=== PATIENT | female | born 1990 | race Caucasian/White ===

== ENCOUNTER → 2024-06-02 18:40 | Outpatient (CLI) | payer OTHER, SELFPAY | PROVIDERS: PCP Nurse Practitioner Family; Visit Provider Student in an Organized Health Care Education/Training Program | DX: R30.0 Dysuria (principal); N94.9 Unspecified condition associated with female genital organs and menstrual cycle | CPT/HCPCS: 87086; 87210 ==

== ENCOUNTER → 2024-06-26 13:18 | Outpatient (CLI) | payer OTHER, SELFPAY ==
[2024-06-26 13:44] LABS: Appearance Urine UA CLEAR; Bilirubin Urine UA NEGATIVE (NEGATIVE); Color Urine UA YELLOW; Glucose Urine UA NEGATIVE (Negative); Ketones Urine UA NEGATIVE (NEGATIVE); Leukocyte Esterase Urine UA NEGATIVE (NEGATIVE); Nitrite Urine UA NEGATIVE (Negative); Occult Blood Urine UA NEGATIVE (Negative); Protein Urine UA NEGATIVE (Negative); Specific Gravity Urine UA >=1.030 (1.000-1.035)
[2024-06-26 13:45] LABS: pH Urine UA 5.5 (4.5-8.0)
[2024-06-26 14:21] LABS: Add Manual Diff / Slide Review NO; Basophils Absolute Auto 0 /uL (0-100); Basophils Percent Auto 0.2 % (0-2); Eosinophils Absolute Auto 0 /uL (0-450); Eosinophils Percent Auto 0.2 % (2-4); Hematocrit 35.7 % (36-46); Hemoglobin 11.9 g/dL (12.0-16.0); Lymphocytes Absolute Auto 1400 /uL (1100-4500); Lymphocytes Percent Auto 19.5 % (25-40); Mean Corpuscular HGB Conc 33.3 % (30-36); Mean Corpuscular Hemoglobin 26.5 PG (26-34); Mean Corpuscular Volume 79.6 fL (80-100); Monocytes Absolute Auto 300 /uL (0-900); Neutrophils Absolute Auto 5600 /uL (1500-7000); Neutrophils Percent Auto 76.1 % (50-75); Platelet Count 214 X10^3/uL (150-400); Red Blood Cell Count 4.49 X10^6/uL (4.0-5.2); Red Cell Distribution Width 15.4 % (11.6-14.8); White Blood Cell Count 7.4 X10^3/uL (4.5-11.0)
[2024-06-26 14:40] LABS: HEMOLYSIS < 15 (0-50); Iron 43 ug/dL (37-170)
[2024-06-26 14:51] LABS: Percent Iron Saturation 11 % (15-50); Total Iron Binding Capacity 375 ug/dL (265-497); Transferrin 346 mg/dL (206-381)
[2024-06-26 15:16] LABS: Ferritin 6 ng/mL (6-137)
[2024-06-28 10:11] LABS: RPR Screen Non Reactive (Non Reactive)
[2024-06-28 12:37] LABS: Varicella IgG Antibody Reactive (Non Reactive)
[2024-06-29 07:22] LABS: Miscellaneous to LabCorp NATERA KIT
[2024-06-29 15:07] LABS: Hepatitis B Surface Antigen NEGATIVE s/c (NEGATIVE); Rubella Antibody IgG 17.9 IU/mL (>15)
[2024-06-29 15:36] LABS: HIV 1 & 2 Ab/Ag 4th Gen Combo NEGATIVE (NEGATIVE); Hep C Virus Ab w/Reflex Quant NEGATIVE s/c (NEGATIVE)
== END ==
PROVIDERS: PCP Nurse Practitioner Family; Referring Provider Family Medicine; Visit Provider Family Medicine
DX: Z13.79 Encounter for other screening for genetic and chromosomal anomalies (principal); Z31.438 Encounter for other genetic testing of female for procreative management; Z36.0 Encounter for antenatal screening for chromosomal anomalies; Z13.29 Encounter for screening for other suspected endocrine disorder; Z13.0 Encounter for screening for diseases of the blood and blood-forming organs and certain disorders involving the immune mechanism; Z13.21 Encounter for screening for nutritional disorder; Z13.228 Encounter for screening for other metabolic disorders; Z34.80 Encounter for supervision of other normal pregnancy, unspecified trimester; Z98.84 Bariatric surgery status; Z3A.09 9 weeks gestation of pregnancy
CPT/HCPCS: 36415; 80055; 81003; 82728; 83540; 83550; 86787; 86803; 86850; 86900; 86901; 87086; 87389

== ENCOUNTER → 2024-07-29 14:26 | Outpatient (CLI) | payer OTHER, SELFPAY ==
[2024-07-31 07:39] LABS: Alpha Fetoprotein 34.3 ng/mL (0.0-6.4)
== END ==
PROVIDERS: PCP Family Medicine; Referring Provider Family Medicine; Visit Provider Family Medicine
DX: Z34.80 Encounter for supervision of other normal pregnancy, unspecified trimester (principal)
CPT/HCPCS: 82105

== ENCOUNTER → 2024-08-18 12:21 | Outpatient (CLI) | payer OTHER, SELFPAY ==
[2024-08-18 13:24] LABS: Hematocrit 30.8 % (36-46); Hemoglobin 10.6 g/dL (12.0-16.0); Mean Corpuscular HGB Conc 34.3 % (30-36); Mean Corpuscular Hemoglobin 28.1 PG (26-34); Mean Corpuscular Volume 81.9 fL (80-100); Platelet Count 225 X10^3/uL (150-400); Red Blood Cell Count 3.76 X10^6/uL (4.0-5.2); White Blood Cell Count 6.6 X10^3/uL (4.5-11.0)
[2024-08-18 13:56] LABS: HEMOLYSIS < 15 (0-50); Iron 43 ug/dL (37-170)
[2024-08-18 14:06] LABS: Calcium 8.9 mg/dL (8.4-10.2)
[2024-08-18 14:10] LABS: Percent Iron Saturation 11 % (15-50); Total Iron Binding Capacity 396 ug/dL (265-497); Transferrin 378 mg/dL (206-381)
[2024-08-18 14:20] LABS: Vitamin D 25 Hydroxy (D3) 41.7 ng/mL (30.0-100.0)
[2024-08-18 14:37] LABS: Ferritin 6 ng/mL (6-137)
[2024-08-18 14:51] LABS: Vitamin B12 Reflex MMA if <400 682 pg/mL (239-931)
[2024-08-18 15:04] LABS: Folate 16.7 ng/mL (2.76-20.0)
[2024-08-20 22:07] LABS: Selenium 106 ug/L (93-198)
== END ==
LOC: LAB 12:22
PROVIDERS: PCP Family Medicine; Referring Provider Family Medicine; Visit Provider Family Medicine
DX: O99.019 Anemia complicating pregnancy, unspecified trimester (principal); Z98.84 Bariatric surgery status; D50.8 Other iron deficiency anemias; Z13.21 Encounter for screening for nutritional disorder
CPT/HCPCS: 36415; 82306; 82310; 82525; 82607; 82728; 82746; 83540; 83550; 84255; 84425; 84446; 84590; 84630; 85027

== ENCOUNTER → 2024-08-31 10:04 | Outpatient (CLI) | payer OTHER, SELFPAY ==
--- NOTE | 2024-08-31 10:05 | DI.US.S_ITS ---
PROCEDURE: US OB >= 14 WEEKS FETUS INDICATIONS: Anatomy Scan OUTSIDE/PRIOR DATING DATA: Last menstrual period (LMP): 04/10/2024. LMP-based estimated date of delivery (ROXANNE): 01/15/2025. First dating scan (date and location): 06/12/2024. Estimated date of delivery (ROXANNE) from first dating scan: 01/15/2025. TECHNIQUE: Real-time scanning was performed of the fetus, with image documentation and biometric measurements. Endovaginal scanning: Not performed COMPARISON: None. FINDINGS: General: A single living intrauterine gestation is present. Presentation: Transverse. Placenta: Placental position is anterior , without previa. Amniotic fluid index: 15.5 cm, normal range is 5-24 cm. Single deepest vertical pocket is 5.1 cm. heart rate: 137 beats per minute. Maternal cervical canal: 3.7 cm long. Normal lower limit is 2.5 cm. biometrics: Biparietal diameter: 5 cm, 21 weeks 1 day Head circumference: 18.5 cm, 20 weeks 6 days Abdominal circumference: 16.7 cm, 21 weeks 5 days Femur length: 3.3 cm, 20 weeks 3 days Clinically estimated gestational age: 20 weeks 3 days Composite gestational age from present scan: 21 weeks 0 days Estimated weight and percentile: 400 g, 82% Anatomic survey: Neuro: Ventricles are non-dilated at less than 10 mm. Cisterna magna is normal at 3-11 mm. Cerebellum is normal in size and morphology. Nuchal skin fold: Normal at less than 6 mm between 14-21 weeks gestational age. Face: Nose and lips, facial profile are normal. Spine: No evidence for spina bifida. Heart: 4-chambered heart is present, with normal ventricular outflow tracts. Diaphragm: Diaphragm is intact. Stomach: Left-sided stomach is present. Kidneys: No hydronephrosis. Normal is less than 5 mm in 2nd trimester, less than 7 mm in 3rd trimester. Cord: 3-vessel cord has orthotopic insertion. Cord inserts 1.6 cm from the right edge of the placenta. Bladder: Normal in size. Extremities: All 4 extremities identified. IMPRESSION: 1. Single live intrauterine consistent with 21 weeks and 0 days. 2. Placental cord insertion is 1.6 cm from the right edge. 3. Otherwise, normal anatomic survey. We strive to produce accurate, complete, and clear reports of imaging services. To assist us in improving patient care, this report was composed using standard report templates and voice recognition software. Therefore, it may contain abnormal punctuation, insertions and/or omissions. Occasional wrong-word or sound-alike substitutions may occur. Though we review the report and make efforts to correct it, we do recommend that the report be read carefully in proper context to recognize any text inaccuracies. Dictated by: Hadley Sosa M.D. on 08/31/2024 at 16:49 Approved by: Hadley Sosa M.D. on 08/31/2024 at 16:51
== END ==
PROVIDERS: PCP Family Medicine; Referring Provider Family Medicine; Visit Provider Family Medicine
DX: Z34.92 Encounter for supervision of normal pregnancy, unspecified, second trimester (principal); Z3A.21 21 weeks gestation of pregnancy
CPT/HCPCS: 76811

== ENCOUNTER 2024-10-07 12:12 | Outpatient (CLI) | payer OTHER, SELFPAY ==
[2024-10-07 12:25] VITALS: BP 109/56; PULSE 70; RESP 16; TEMP 36.6; O2SAT 98; BMI 30.2
--- NOTE | 2024-10-07 12:39 | EKG_ITS ---
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
--- NOTE | 2024-10-07 12:42 | DI.US.S_ITS ---
PROCEDURE: US OB LIMITED INDICATIONS: PELVIC PRESSURE WITH STANDING. RELIEVED WITH SITTING. OUTSIDE/PRIOR DATING DATA: Last menstrual period (LMP): 04/10/2024. LMP-based estimated date of delivery (ROXANNE): 01/15/2025. First dating scan (date and location): 06/12/2024 Estimated date of delivery (ROXANNE) from first dating scan: 01/15/2025. The calculations are made using the ultrasound ROXANNE of 01/15/2025. TECHNIQUE: Real-time scanning was performed of the fetus, with image documentation. Endovaginal scanning: Yes COMPARISON: None. FINDINGS: A single living intrauterine gestation is present. Presentation: Vertex. Placenta: Placental position is anterior, without previa. Marginal versus velamentous cord insertion. Amniotic fluid index: 22.2 cm, normal range is 5-24 cm. Single deepest vertical pocket is 6.5 cm. heart rate: 131 beats per minute. Maternal cervical canal: 1.6 cm long. Normal lower limit is 2.5 cm. On the cine clips, there is minimal cervical funneling (). Estimated gestational age from current exam: 25 weeks and 5 days IMPRESSION: 1. Single live intrauterine with an estimated heart rate of 131 beats per minute and estimated gestational age of 25 weeks and 5 days. 2. Shortened cervix at 1.6 cm with minimal funneling, and a marginal versus velamentous cord insertion. These findings were communicated via telephone to the ordering provider, Dr Pereira, by Antione Flores MD on 10/07/2024 at 2:05 p.m. Dictated by: Antione Flores M.D. on 10/07/2024 at 13:53 Approved by: Antione Flores M.D. on 10/07/2024 at 14:06
[2024-10-07] MEDS: SODIUM CHLORIDE 0.9% 1,000 ML 1000 ML IV (12:57)
[2024-10-07 12:58] LABS: Add Manual Diff / Slide Review NO; Basophils Absolute Auto 0 /uL (0-100); Basophils Percent Auto 0.1 % (0-2); Eosinophils Absolute Auto 0 /uL (0-450); Eosinophils Percent Auto 0.3 % (2-4); Hematocrit 32.6 % (36-46); Hemoglobin 10.8 g/dL (12.0-16.0); Lymphocytes Absolute Auto 1100 /uL (1100-4500); Lymphocytes Percent Auto 14.2 % (25-40); Mean Corpuscular HGB Conc 33.1 % (30-36); Mean Corpuscular Hemoglobin 28.6 PG (26-34); Mean Corpuscular Volume 86.3 fL (80-100); Monocytes Absolute Auto 500 /uL (0-900); Monocytes Percent Auto 5.9 % (3-14); Neutrophils Absolute Auto 6200 /uL (1500-7000); Neutrophils Percent Auto 79.5 % (50-75); Platelet Count 205 X10^3/uL (150-400); Red Blood Cell Count 3.78 X10^6/uL (4.0-5.2); Red Cell Distribution Width 16.1 % (11.6-14.8); White Blood Cell Count 7.8 X10^3/uL (4.5-11.0)
[2024-10-07 13:10] LABS: Alanine Aminotransferase 18 IU/L (<35); Albumin 3.8 g/dL (3.5-5.0); Albumin Globulin Ratio 1.2 (1.0-2.8); Alkaline Phosphatase 60 U/L (38-126); Aspartate Aminotransferase 26 IU/L (14-36); BUN Creatinine Ratio 26.3 (6-22); Bilirubin Total 0.5 mg/dL (0.2-1.3); Blood Urea Nitrogen 15 mg/dL (7-17); Calcium 8.8 mg/dL (8.4-10.2); Carbon Dioxide 21 mmol/L (22-32); Chloride 105 mmol/L (98-107); Creatine Kinase 41 U/L (30-135); Estimated Glomerular Filt Rate > 60 mL/min (>60); Globulin 3.1 g/dL (1.7-4.1); Glucose 68 mg/dL (70-100); HEMOLYSIS < 15 (0-50); Magnesium 1.8 mg/dL (1.6-2.3); Potassium 3.5 mmol/L (3.4-5.1); Sodium 135 mmol/L (137-145); Total Protein 6.9 g/dL (6.3-8.2)
[2024-10-07 13:21] LABS: Troponin I < 0.012 ng/mL (0.01-0.034)
[2024-10-07 13:46] LABS: Ictotest Urine Negative (Negative); Urine Volume 10mL (spun)
[2024-10-07 13:48] LABS: Bacteria Urine Many (>30); Culture Indicated Urine Specimen Cultured; RBC Urine None Seen (0-5/HPF); Squamous Epithelial Cell Urine 10-30 /HPF (0-5/HPF); WBC Urine 10-30/HPF (0-5/HPF)
--- NOTE | 2024-10-07 13:56 | ED.DIZZY ---
HPI - Dizziness General Chief Complaint: Syncope Stated Complaint: 26 wks near syncope, pelvic px Time Seen by Provider: 10/07/24 12:37 History of Present Illness HPI Narrative: 34-year-old female with current SAB 1 believes that she is currently at 26 weeks gestation, with EDC she reports as 01/15/2025, has care by Dr. Barillas. History of gastric bypass and dumping syndrome, prior episodes of near-syncope in the past. Had feeling that she was going to maybe pass out earlier today, and pelvic cramping sensation. No actual vaginal bleeding. Two days ago she was moving furniture and had similar symptoms without bleeding and briefly passed out. She had not strike her head. She has no palpitation symptoms, chest pain, shortness of breath. She feels recovered from the sensation of wanting to pass out. No shaking or seizure activity. Complains of pelvic cramping, no leaking of fluid, no vaginal bleeding. Related Data Home Medications Medication Instructions Recorded Confirmed calcium carbonate 500 mg PO DAILY 06/04/24 09/04/24 cholecalciferol (vitamin D3) 25 25 mcg PO DAILY 06/04/24 09/04/24 mcg (1,000 unit) capsule mecobalamin (vitamin B12) 1,000 1,000 mcg PO DAILY 06/04/24 09/04/24 mcg lozenges vitamin-ferrous sulfate tab PO 06/04/24 09/04/24 27 mg iron-folic acid 0.8 mg tablet Previous Rx's Medication Instructions Recorded blood sugar diagnostic #100 ea 09/04/24 blood-glucose meter (Blood Glucose #1 ea 09/04/24 Monitoring kit) lancets 30 gauge #100 ea 09/04/24 Allergies Allergy/AdvReac Type Severity Reaction Status Date / Time amoxicillin Allergy Intermediate Hives Verified 09/04/24 15:32 cefdinir Allergy Intermediate Hives Verified 09/04/24 15:32 Latex, Natural Rubber Allergy Mild ITCHING Verified 09/04/24 15:32 adhesive AdvReac Intermediate Rash Verified 09/04/24 15:32 Patient History Medical History (Updated 10/07/24 @ 14:10 by Fredo Pereira MD) Wears glasses Ruptured spleen (~2000) Surgical History (Updated 07/08/24 @ 19:49 by Trista Valderrama) Anesthesia [place] teeth extracted History of tonsillectomy (~1999) History of cholecystectomy (~2014) History of gastric bypass (~2019) Family History (Updated 07/08/24 @ 19:59 by Trista Valderrama) Mother PMR (polymyalgia rheumatica) Obesity Father Diabetes mellitus Pancreatic cancer Sister Drug abuse and dependence Fibromyalgia Depression Anxiety Obesity Mental health problem Granddaughter Cancer Grandmother Hyperlipidemia Heart disease Grandmother No problems noted. Grandfather No problems noted. Grandfather Cancer Family/Other ADHD Obesity Social History marital status: number of children: 1 household members: spouse and children lives independently: Yes caregiver/support person: Yes housing: house pets and animals: Yes (dogs) education level: college occupational status: employed current occupational exposures/hazards: No special garo needs: No travel history: recent seatbelt use: always water heater temp set < 120 deg: Yes working smoke detector in home: Yes fire extinguisher in home: No carbon monox detector in home: Yes firearms in home: No do you feel safe at home: Yes second hand exposure: No alcohol intake: former substance use type: does not use during the past year weight has: remained stable well-balanced diet: daily or most days daily servings fruits/ve or more times/day caffeine: Yes (aware of ) Type(s) of exercise: none Smoking Status: Never smoker Exam Narrative Exam Narrative: GENERAL: Well-developed patient, in mild distress. HEAD: Atraumatic. Normocephalic. EYES: Pupils equal round and reactive. Extraocular motions intact. No scleral icterus. No injection or drainage. ENT: Nose without bleeding, purulent drainage. Throat without erythema, tonsillar hypertrophy or exudate. Airway patent. NECK: Trachea midline. Non tender CARDIOVASCULAR: Regular rate and rhythm without murmurs, gallops, or rubs. RESPIRATORY: Clear to auscultation. Breath sounds equal bilaterally. No wheezes, rales, or rhonchi. GASTROINTESTINAL: Abdomen soft, non-tender, nondistended. EXTREMITIES: No edema or joint tenderness. BACK: Nontender without deformity or crepitance. No flank tenderness. NEURO: AOx3. Motor functions grossly nonfocal SKIN: No rash or erythema of visible areas Initial Vital Signs Initial Vital Signs: Vital Signs Temperature 98 F 10/07/24 12:25 Pulse Rate 70 10/07/24 12:25 Respiratory Rate 16 10/07/24 12:25 Blood Pressure 109/56 L 10/07/24 12:25 Pulse Oximetry 98 10/07/24 12:25 Oxygen Delivery Method Room Air 10/07/24 12:25 Course Orders Ordered: Discontinued Medications Sodium Chloride (Normal Saline 0.9%) 1,000 mls @ 1,000 mls/hr IV BOLUS ONE Stop: 10/07/24 13:36 Last Infusion: 10/07/24 14:12 Dose: Infused Documented By: Admin: 10/07/24 12:57 Dose: 1,000 mls/hr Documented By: MANUEL Vital Signs Vital signs: Vital Signs - 8 hr 10/07/24 12:25 10/07/24 14:08 10/07/24 14:11 Temperature 98 F Pulse Rate 70 84 Respiratory Rate 16 Blood Pressure 109/56 L 126/65 Pulse Oximetry 98 100 Oxygen Delivery Method Room Air 10/07/24 14:11 Temperature Pulse Rate 83 Respiratory Rate 12 Blood Pressure Pulse Oximetry 100 Oxygen Delivery Method MDM - Dizziness Lab Data Attestation: I reviewed the patient's lab results. Lab results narrative: White blood cell count 7800, hemoglobin 10.8, platelets 205,000 adequate. Sodium 135, potassium 3.5, serum CO2 21, chloride 105. BUN 15 with creatinine 0.57 normal renal function. Glucose 68 noted. Normal renal functions. Troponin negative. 10/07/24 12:52 10/07/24 12:52 Labs: Lab Results 10/07/24 10/07/24 Range/Units 12:52 13:30 WBC 7.8 (4.5-11.0) X10^3/uL RBC 3.78 L (4.0-5.2) X10^6/uL Hgb 10.8 L (12.0-16.0) g/dL Hct 32.6 L (36-46) % MCV 86.3 (80-100) fL MCH 28.6 (26-34) PG MCHC 33.1 (30-36) % RDW 16.1 H (11.6-14.8) % Plt Count 205 (150-400) X10^3/uL Neut % (Auto) 79.5 H (50-75) % Lymph % (Auto) 14.2 L (25-40) % [place] % (Auto) 5.9 (3-14) % Eos % (Auto) 0.3 L (2-4) % Baso % (Auto) 0.1 (0-2) % Neut # (Auto) 6200 (8782-8692) /uL Lymph # (Auto) 1100 (9888-3273) /uL [place] # (Auto) 500 (0-900) /uL Eos # (Auto) 0 (0-450) /uL Baso # (Auto) 0 (0-100) /uL Sodium 135 L (137-145) mmol/L Potassium 3.5 (3.4-5.1) mmol/L Chloride 105 (98-107) mmol/L Carbon Dioxide 21 L (22-32) mmol/L BUN 15 (7-17) mg/dL Creatinine 0.57 (0.52-1.04) mg/dL Estimated GFR > 60 (>60) mL/min BUN/Creatinine Ratio 26.3 H (6-22) Glucose 68 L (70-100) mg/dL Calcium 8.8 (8.4-10.2) mg/dL Magnesium 1.8 (1.6-2.3) mg/dL Total Bilirubin 0.5 (0.2-1.3) mg/dL AST 26 (14-36) IU/L ALT 18 (<35) IU/L Alkaline Phosphatase 60 (38-126) U/L Total Creatine Kinase 41 (30-135) U/L Troponin I < 0.012 (0.01-0.034) ng/mL Total Protein 6.9 (6.3-8.2) g/dL Albumin 3.8 (3.5-5.0) g/dL Globulin 3.1 (1.7-4.1) g/dL Albumin/Globulin Ratio 1.2 (1.0-2.8) Ur Bilirubin Confirm Negative (Negative) Urine RBC None seen (0-5/HPF) Urine WBC 10-30/hpf H (0-5/HPF) Ur Squamous Epith Cells 10-30 /hpf H (0-5/HPF) Urine Bacteria Many (>30) H (None) Ur Culture Indicated? Specimen cultured Vol Urine Centrifuged 10ml (spun) Urine Dip Bedside Urine Glucose 100 mg/dl Bedside Urine Bilirubin + 1 Bedside Urine Ketone - Negative Urine Specific [place] 1.025 Bedside Urine Occult Blood - Negative Bedside Urine pH 6.0 Bedside Urine Protein + 30 Bedside Urine Urobilinogen - Negative Bedside Urine Nitrite - Negative Bedside Urine Leukocytes ++ 125 Esterase Imaging Data OB ultrasound: Radiologist's Impression: [address] [address] Ultrasound Report Signed Patient: Sadie Winters MR#: [id number] : 1990 Acct:[id number] Age/Sex: 34 / F Date of Service: 10/07/24 Loc: ED Accession Number: [id number] Procedure: US OB limited Ordering Provider: Fredo Pereira MD PROCEDURE: US OB LIMITED INDICATIONS: PELVIC PRESSURE WITH STANDING. RELIEVED WITH SITTING. OUTSIDE/PRIOR DATING DATA: Last menstrual period (LMP): 04/10/2024. LMP-based estimated date of delivery (ROXANNE): 01/15/2025. First dating scan (date and location): 06/12/2024 Estimated date of delivery (ROXANNE) from first dating scan: 01/15/2025. The calculations are made using the ultrasound ROXANNE of 01/15/2025. TECHNIQUE: Real-time scanning was performed of the fetus, with image documentation. Endovaginal scanning: Yes COMPARISON: None. FINDINGS: A single living intrauterine gestation is present. Presentation: Vertex. Placenta: Placental position is anterior, without previa. Marginal versus velamentous cord insertion. Amniotic fluid index: 22.2 cm, normal range is 5-24 cm. Single deepest vertical pocket is 6.5 cm. heart rate: 131 beats per minute. Maternal cervical canal: 1.6 cm long. Normal lower limit is 2.5 cm. On the cine clips, there is minimal cervical funneling (/80). Estimated gestational age from current exam: 25 weeks and 5 days IMPRESSION: 1. Single live intrauterine with an estimated heart rate of 131 beats per minute and estimated gestational age of 25 weeks and 5 days. 2. Shortened cervix at 1.6 cm with minimal funneling, and a marginal versus velamentous cord insertion. These findings were communicated via telephone to the ordering provider, Dr Pereira, by Antione Flores MD on 10/07/2024 at 2:05 p.m. Dictated by: Antione Flores M.D. on 10/07/2024 at 13:53 Approved by: Antione Flores M.D. on 10/07/2024 at 14:06 ECG Data Attestation: I personally reviewed and interpreted this ECG as follows: Interpretation: Normal sinus rhythm with rate of 68. No obvious ST segment elevation or depression changes. T-wave inversion lead 3. Upright T-waves leads 2 and 3. [place] 134, QRS 90, QTC 425. MDM Narrative Medical decision making narrative: 34-year-old SAb1 current 26 gestation, with near syncopal episode, unremarkable triage vital signs, afebrile. Some abdominal cramping. Ultrasound pelvis ordered. No vaginal bleeding. [employer] believes that there is some cervical length shortening, cervical length was 3.7 on 08/31/2026, today 1.6 cm. Remainder of exam unremarkable. Await Radiology report. Paged BREANNA Barillas who does her care. [facility] [place]. Keep NPO. Call from Radiology, concerned about cervical length shortening as well, concur with previous assessment of previous cervical length 3.7 cm last month 08/31/24 compared to 1.6 cm today. Live intrauterine present, gestational age estimated 25.5 weeks concordant with reported EGA 26. See radiology report. 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 Sill Worker on-call doctor Dr Osmar hutchison. 1420, case discussed with OB on-call Dr Prasad, advises transfer over to the [facility] for further evaluation, advised not to give any tocolytics at this time. Further evaluation at [facility]. Discharge Plan Departure Patient Disposition: Admitted as Observation Clinical Impression: Near syncope, , Cervical shortening during
--- NOTE | 2024-10-07 13:56 | PC.NURSE ---
Pt placed in reverse trendelenberg, Dr Pereira made aware.
[2024-10-07 14:08] VITALS: PULSE 84; O2SAT 100
[2024-10-07 14:11] VITALS: BP 126/65; PULSE 83; RESP 12; O2SAT 100
== END 2024-10-07 15:40 | disposition home or self-care (01) ==
LOC: ED 14:31 → AC 15:00 → LABOR 15:48 → OB 16:42
PROVIDERS: Emergency Provider Emergency Medicine; Referring Provider Emergency Medicine; Visit Provider Obstetrics & Gynecology
DX: O34.32 Maternal care for cervical incompetence, second trimester (principal); O26.892 Other specified pregnancy related conditions, second trimester; R55 Syncope and collapse; Z3A.25 25 weeks gestation of pregnancy
CPT/HCPCS: 36415; 59025; 76815; 76817; 80053; 81003; 81015; 82550; 83735; 84484; 85025; 87086; 93005; 96360; 99284; G0378

== ENCOUNTER 2024-10-16 15:45 | Outpatient (CLI) | payer OTHER, SELFPAY ==
[2024-10-16] MEDS: BETAMETHASONE 30 MG/5 ML MDV 12 MG IM (16:11)
== END 2024-10-16 16:15 | disposition home or self-care (01) ==
LOC: OB 17:16
PROVIDERS: Referring Provider Family Medicine; Visit Provider Family Medicine
DX: Z34.82 Encounter for supervision of other normal pregnancy, second trimester (principal); Z3A.27 27 weeks gestation of pregnancy
CPT/HCPCS: 96372; G0378; G0379; J0702

== ENCOUNTER 2024-10-17 16:01 | Outpatient (CLI) | payer OTHER, SELFPAY ==
[2024-10-17] MEDS: BETAMETHASONE 30 MG/5 ML MDV 12 MG IM (16:12)
== END 2024-10-17 16:20 | disposition home or self-care (01) ==
LOC: OB 10-19 12:01
PROVIDERS: Referring Provider Specialist; Visit Provider Specialist
DX: O26.872 Cervical shortening, second trimester (principal); Z3A.27 27 weeks gestation of pregnancy
CPT/HCPCS: 96372; G0378; G0379; J0702

== ENCOUNTER → 2024-10-22 10:44 | Outpatient (CLI) | payer OTHER, SELFPAY ==
--- NOTE | 2024-10-22 10:45 | DI.US.S_ITS ---
PROCEDURE: US OB LIMITED INDICATIONS: cervical length OUTSIDE/PRIOR DATING DATA: The calculations are made using the working ROXANNE of 01/15/25. TECHNIQUE: Real-time scanning was performed of the fetus, with image documentation Endovaginal scanning: Not performed COMPARISON: [facility], OB LIMITED, 10/07/2024, 13:17. FINDINGS: General: A single living intrauterine gestation is present. Presentation: Vertex. Placenta: Placental position is anterior , without previa. Amniotic fluid index: 13.5 cm, normal range is 5-24 cm. Single deepest vertical pocket is 5.9 cm. heart rate: 157 beats per minute. Maternal cervical canal: Again noted is cervical funneling. The closed portion of the cervix measures about 1.3 cm. The open portion of the cervix measures at least 3.6 cm. Other: Placental cord insertion is at the margin of the placenta, less than 1 cm from the edge and velamentous cord cannot be excluded. IMPRESSION: Single live intrauterine in vertex presentation. Cervical funneling. This has mildly progressed since the prior exam. Marginal versus velamentous cord insertion. Preliminary results were conveyed by the technologist to the ordering provider at 11:20 a.m., 10/22/24. We strive to produce accurate, complete, and clear reports of imaging services. To assist us in improving patient care, this report was composed using standard report templates and voice recognition software. Therefore, it may contain abnormal punctuation, insertions and/or omissions. Occasional wrong-word or sound-alike substitutions may occur. Though we review the report and make efforts to correct it, we do recommend that the report be read carefully in proper context to recognize any text inaccuracies. Dictated by: Shelli Wiseman M.D. on 10/23/2024 at 11:46 Approved by: Shelli Wiseman M.D. on 10/23/2024 at 11:54
[2024-10-22 12:27] LABS: Hematocrit 29.6 % (36-46); Hemoglobin 9.7 g/dL (12.0-16.0); Mean Corpuscular HGB Conc 32.8 % (30-36); Mean Corpuscular Hemoglobin 27.9 PG (26-34); Mean Corpuscular Volume 85.2 fL (80-100); Platelet Count 211 X10^3/uL (150-400); Red Blood Cell Count 3.48 X10^6/uL (4.0-5.2); Red Cell Distribution Width 15.6 % (11.6-14.8); White Blood Cell Count 8.9 X10^3/uL (4.5-11.0)
[2024-10-22 13:05] LABS: Calcium 8.4 mg/dL (8.4-10.2)
[2024-10-22 13:25] LABS: HEMOLYSIS < 15 (0-50); Iron 26 ug/dL (37-170)
[2024-10-22 13:37] LABS: Percent Iron Saturation 6 % (15-50); Total Iron Binding Capacity 461 ug/dL (265-497); Transferrin 392 mg/dL (206-381)
[2024-10-22 13:41] LABS: Ferritin 6 ng/mL (6-137)
[2024-10-22 15:04] LABS: Vitamin D 25 Hydroxy (D3) 28.1 ng/mL (30.0-100.0)
== END ==
PROVIDERS: Referring Provider Family Medicine; Visit Provider Family Medicine
DX: O26.879 Cervical shortening, unspecified trimester (principal); O99.019 Anemia complicating pregnancy, unspecified trimester; D50.8 Other iron deficiency anemias; O99.840 Bariatric surgery status complicating pregnancy, unspecified trimester
CPT/HCPCS: 36415; 76815; 82306; 82310; 82728; 83540; 83550; 85027

== ENCOUNTER 2024-10-27 10:17 | Observation (INO) | payer OTHER, SELFPAY ==
[2024-10-27 11:19] LABS: Add Manual Diff / Slide Review NO; Appearance Urine UA CLEAR; Basophils Absolute Auto 0 /uL (0-100); Basophils Percent Auto 0.1 % (0-2); Bilirubin Urine UA 1+ (NEGATIVE); Color Urine UA YELLOW; Eosinophils Absolute Auto 0 /uL (0-450); Eosinophils Percent Auto 0.3 % (2-4); Glucose Urine UA NEGATIVE (Negative); Hematocrit 26.7 % (36-46); Hemoglobin 9.1 g/dL (12.0-16.0); Ketones Urine UA TRACE (NEGATIVE); Leukocyte Esterase Urine UA NEGATIVE (NEGATIVE); Lymphocytes Absolute Auto 900 /uL (1100-4500); Lymphocytes Percent Auto 11.6 % (25-40); Mean Corpuscular Hemoglobin 28.5 PG (26-34); Mean Corpuscular Volume 83.7 fL (80-100); Monocytes Absolute Auto 500 /uL (0-900); Neutrophils Absolute Auto 6200 /uL (1500-7000); Nitrite Urine UA NEGATIVE (Negative); Occult Blood Urine UA NEGATIVE (Negative); Platelet Count 185 X10^3/uL (150-400); Protein Urine UA 2+ (Negative); Red Blood Cell Count 3.19 X10^6/uL (4.0-5.2); Red Cell Distribution Width 15.4 % (11.6-14.8); Specific Gravity Urine UA >=1.030 (1.000-1.035); Urobilinogen Urine UA 0.2 E.U./dL (0.2); White Blood Cell Count 7.6 X10^3/uL (4.5-11.0)
[2024-10-27 11:24] LABS: pH Urine UA 5.5 (4.5-8.0)
[2024-10-27 11:32] LABS: Ictotest Urine Positive (Negative); Urine Volume 10mL (spun)
[2024-10-27 11:33] LABS: Bacteria Urine Few (2-10); Culture Indicated Urine Cult Not Indicated; Mucus Urine 1+ (Negative); RBC Urine 0-1/HPF (0-5/HPF); Squamous Epithelial Cell Urine 1-5 /HPF (0-5/HPF); WBC Urine 1-5/HPF (0-5/HPF)
[2024-10-27 11:47] LABS: Alanine Aminotransferase 14 IU/L (<35); Albumin 3.2 g/dL (3.5-5.0); Albumin Globulin Ratio 1.2 (1.0-2.8); Alkaline Phosphatase 59 U/L (38-126); Aspartate Aminotransferase 20 IU/L (14-36); BUN Creatinine Ratio 22.6 (6-22); Bilirubin Total 0.3 mg/dL (0.2-1.3); Blood Urea Nitrogen 12 mg/dL (7-17); Calcium 8.6 mg/dL (8.4-10.2); Carbon Dioxide 24 mmol/L (22-32); Chloride 106 mmol/L (98-107); Estimated Glomerular Filt Rate > 60 mL/min (>60); Globulin 2.6 g/dL (1.7-4.1); Glucose 80 mg/dL (70-99); HEMOLYSIS < 15 (0-50); Sodium 136 mmol/L (137-145); Total Protein 5.8 g/dL (6.3-8.2)
[2024-10-27 13:03] LABS: Ur Creatinine Normal (Normal); Ur Specific Gravity Normal (Normal); Urine Amphetamines Negative (Negative); Urine Barbiturates Negative (Negative); Urine Benzodiazepines Negative (Negative); Urine Cocaine Negative (Negative); Urine MDMA Negative (Negative); Urine Methadone Negative (Negative); Urine Opiates Negative (Negative); Urine Oxycodone Negative (Negative); Urine Phencyclidine Negative (Negative); Urine THC Negative (Negative); Urine Tricyclic Antidepressant Negative (Negative); Urine pH Normal (Normal)
--- NOTE | 2024-10-27 13:10 | PM.OBTRLD ---
Visit Information Visit Information Date of evaluation: 10/27/24 Primary OB Provider: Kush Barillas Reason for Evaluation: Yes other Comments/Additional reasons for admission: 34-year-old at GA 28+4 weeks presents for dizziness. Was driving earlier today when felt lightheaded and experienced tunnel vision, similar to two previous episodes of presyncope over the past month. No preceding palpitations or SOB; no subsequent confusion or loss of bowel/bladder function. Previous ER workup unremarkable for cardiac etiology. Endorses normal movement. Denies vaginal bleeding, leakage of fluid, pelvic pain/pressure. notable for history of [place] bypass, iron deficiency anemia, marginal vs velamentous cord insertion, short cervix incidentally identified on ultrasound during previous ER evaluation. [facility] Medical History (Updated 10/27/24 @ 13:46 by Kush Barillas MD) Wears glasses Ruptured spleen (~1999) Surgical History (Updated 07/08/24 @ 19:49 by Trista Valderrama) Anesthesia [place] teeth extracted History of tonsillectomy (~1999) History of cholecystectomy (~2014) History of gastric bypass (~2019) Family History (Updated 07/08/24 @ 19:59 by Trista Valderrama) Mother PMR (polymyalgia rheumatica) Obesity Father Diabetes mellitus Pancreatic cancer Sister Drug abuse and dependence Fibromyalgia Depression Anxiety Obesity Mental health problem Granddaughter Cancer Grandmother Hyperlipidemia Heart disease Grandmother No problems noted. Grandfather No problems noted. Grandfather Cancer Family/Other ADHD Obesity Social History marital status: number of children: 1 household members: spouse and children lives independently: Yes caregiver/support person: Yes housing: house pets and animals: Yes (dogs) education level: college occupational status: employed current occupational exposures/hazards: No special garo needs: No travel history: recent seatbelt use: always water heater temp set < 120 deg: Yes working smoke detector in home: Yes fire extinguisher in home: No carbon monox detector in home: Yes firearms in home: No do you feel safe at home: Yes second hand exposure: No alcohol intake: former substance use type: does not use during the past year weight has: remained stable well-balanced diet: daily or most days daily servings fruits/ve or more times/day caffeine: Yes (aware of ) Type(s) of exercise: none Exam Narrative Exam Narrative: General: Well-nourished, no distress HEENT: NC/AT, EOMI, moist mucous membranes CV: RRR, normal S1 S2, no m/g/r Resp: CTAB Abd: Gravid, soft, NTND, +BS Ext: Full ROM, no edema Skin: No rash or lesions Neuro: A&O x3, normal tone, no focal deficits Objective Labs 10/27/24 10:50 10/27/24 10:50 Labs: Laboratory Results - last 24 hr 10/27/24 10/27/24 10:50 10:50 WBC 7.6 RBC 3.19 L Hgb 9.1 L Hct 26.7 L MCV 83.7 MCH 28.5 MCHC 34.0 RDW 15.4 H Plt Count 185 Neut % (Auto) 81.0 H Lymph % (Auto) 11.6 L [place] % (Auto) 7.0 Eos % (Auto) 0.3 L Baso % (Auto) 0.1 Neut # (Auto) 6200 Lymph # (Auto) 900 L [place] # (Auto) 500 Eos # (Auto) 0 Baso # (Auto) 0 Sodium 136 L Potassium 4.0 Chloride 106 Carbon Dioxide 24 BUN 12 Creatinine 0.53 Estimated GFR > 60 BUN/Creatinine Ratio 22.6 H Glucose 80 Calcium 8.6 Total Bilirubin 0.3 AST 20 ALT 14 Alkaline Phosphatase 59 Total Protein 5.8 L Albumin 3.2 L Globulin 2.6 Albumin/Globulin Ratio 1.2 Urine Color Yellow Urine Appearance Clear Urine pH 5.5 Normal Ur Specific [place] >=1.030 H Urine Protein 2+ H Urine Glucose (UA) Negative Urine Ketones Trace H Urine Occult Blood Negative Urine Nitrate Negative Urine Bilirubin 1+ H Ur Bilirubin Confirm Positive H Urine Urobilinogen 0.2 Ur Leukocyte Esterase Negative Urine RBC 0-1/hpf Urine WBC 1-5/hpf Ur Squamous Epith Cells 1-5 /hpf D Urine Bacteria Few (2-10) H Urine Mucus 1+ H Ur Culture Indicated? Cult not indicated Vol Urine Centrifuged 10ml (spun) U Opiates 300ng/mL cut Negative Ur Oxycodone Screen Negative Urine Methadone Screen Negative Ur Barbiturates Screen Negative U Tricyclic Antidepress Negative Ur Phencyclidine Scrn Negative Ur Amphetamines Screen Negative U Methamphetamines Scrn Negative Ur MDMA Scrn (Ecstasy) Negative U Benzodiazepines Scrn Negative Urine Cocaine Screen Negative U Marijuana (THC) Screen Negative Urine Specific [place] Normal Ur Creatinine Normal Evaluation Evaluation Baseline heart rate: 135 Variability: Moderate (11-25) monitor accelerations: Present Monitor Decelerations: Absent Category of Tracing: Reactive Status: Category l Diagnosis, Plan/Disposition Final Diagnosis (1) 28 weeks gestation of : Status: Acute (2) Near syncope: Status: Acute (3) Anemia affecting : Status: Acute (4) Acquired iron deficiency anemia due to decreased absorption: Status: Acute Plan/Disposition Plan: 34-year-old at GA 28+4 weeks with recurrent presyncope. CBC demonstrates persistent microcytic anemia, UA with 2+ protein, bilirubin, trace ketones. CMP and UDS unremarkable. Symptomatically improved after 1 L LR bolus. Seems orthostatic/vasovagal combined with known anemia given lack of cardiac or neuro sxs. well-being reassuring with reactive NST and category 1 strip. Zio monitor was previously ordered, will follow-up on this outpatient. May consider scheduling regular fluid bolus outpatient in addition to iron infusion. Stable for discharge home. Follow-up at scheduled visit later this week. OB Disposition: home
[2024-10-27 13:57] LABS: Creatinine Urine Random 284.46 mg/dL; Protein (Total) Urine Random 117 mg/dL (0-12); Protein Creatinine Ratio Urine 0.41 GRAM/24H
== END 2024-10-27 13:08 | disposition home or self-care (01) ==
PROVIDERS: Admitting Provider Family Medicine; Referring Provider Family Medicine; Visit Provider Family Medicine
DX: O99.012 Anemia complicating pregnancy, second trimester (principal); Z3A.28 28 weeks gestation of pregnancy; R55 Syncope and collapse; D50.8 Other iron deficiency anemias
CPT/HCPCS: 59025; 59050; 80053; 80305; 81001; 82570; 84156; 85025; 96360; G0378; G0379

== ENCOUNTER → 2024-10-30 14:50 | Outpatient (CLI) | payer OTHER, SELFPAY ==
[2024-10-30 15:15] LABS: Hemoglobin 9.4 g/dL (12.0-16.0); Mean Corpuscular HGB Conc 34.7 % (30-36); Mean Corpuscular Hemoglobin 28.6 PG (26-34); Mean Corpuscular Volume 82.3 fL (80-100); Platelet Count 200 X10^3/uL (150-400); Red Blood Cell Count 3.28 X10^6/uL (4.0-5.2); Red Cell Distribution Width 15.6 % (11.6-14.8); White Blood Cell Count 8.2 X10^3/uL (4.5-11.0)
[2024-10-30 15:32] LABS: HEMOLYSIS < 15 (0-50); Iron 33 ug/dL (37-170)
[2024-10-30 15:42] LABS: Percent Iron Saturation 7 % (15-50); Total Iron Binding Capacity 470 ug/dL (265-497); Transferrin 407 mg/dL (206-381)
[2024-10-30 16:10] LABS: Ferritin 5 ng/mL (6-137)
== END ==
PROVIDERS: Referring Provider Family Medicine; Visit Provider Family Medicine
DX: Z34.93 Encounter for supervision of normal pregnancy, unspecified, third trimester (principal); Z3A.28 28 weeks gestation of pregnancy
CPT/HCPCS: 36415; 82728; 83540; 83550; 85027

== ENCOUNTER → 2024-11-03 10:53 | Outpatient (CLI) | payer OTHER, SELFPAY ==
--- NOTE | 2024-11-03 10:58 | DI.US.S_ITS ---
PROCEDURE: US OB LIMITED INDICATIONS: Cervical Length OUTSIDE/PRIOR DATING DATA: Last menstrual period (LMP): Not available LMP-based estimated date of delivery (ROXANNE): 01/15/2025 First dating scan (date and location): 06/12/2024 Estimated date of delivery (ROXANNE) from first dating scan: 01/15/2025 The calculations are made using the working ROXANNE of 01/15/2025 TECHNIQUE: Real-time scanning was performed of the fetus for biophysical profile, with image documentation. Color and pulse Doppler interrogation was also performed of the umbilical artery near its insertion into the placenta. Endovaginal scanning: Not performed COMPARISON: [facility], OB LIMITED, 10/22/2024, 11:07. FINDINGS: General: A single living intrauterine gestation is present. Presentation: Breech Placenta: Placental position is anterior, without previa. Amniotic fluid index: 10.2 cm, normal range is 5-24 cm. Single deepest vertical pocket is 4.2 cm. heart rate: 140 beats per minute. Maternal cervical canal: 1.7 cm long. Normal lower limit is 2.5 cm. Estimated gestational age from initial scan: 29 weeks, 4 days. IMPRESSION: 1. Single live intrauterine gestation with fetus in breech presentation. heart rate is 140 beats per minute. Normal TOSHIA at 10.2 cm. 2. Short cervical length measures 1.7 cm. Clinical correlation and follow-up is recommended. We strive to produce accurate, complete, and clear reports of imaging services. To assist us in improving patient care, this report was composed using standard report templates and voice recognition software. Therefore, it may contain abnormal punctuation, insertions and/or omissions. Occasional wrong-word or sound-alike substitutions may occur. Though we review the report and make efforts to correct it, we do recommend that the report be read carefully in proper context to recognize any text inaccuracies. Dictated by: José Miguel Schaeffer M.D. on 11/03/2024 at 11:33 Approved by: José Miguel Schaeffer M.D. on 11/03/2024 at 11:42
== END ==
LOC: US 10:57
PROVIDERS: Referring Provider Family Medicine; Visit Provider Family Medicine
DX: O26.873 Cervical shortening, third trimester (principal); Z3A.29 29 weeks gestation of pregnancy
CPT/HCPCS: 76815

== ENCOUNTER → 2024-11-04 14:30 | Outpatient (CLI) | payer OTHER, SELFPAY | LOC: CAR 11-05 07:42 | PROVIDERS: Referring Provider Family Medicine; Visit Provider Family Medicine | DX: R00.2 Palpitations (principal) | CPT/HCPCS: 93246 ==

== ENCOUNTER 2024-11-07 20:05 | Observation (INO) | payer OTHER, SELFPAY ==
--- NOTE | 2024-11-07 20:23 | DI.US.S_ITS ---
PROCEDURE: US OB LIMITED INDICATIONS: SHORT CERVIX; GROWTH; PELVIC PAIN OUTSIDE/PRIOR DATING DATA: Last menstrual period (LMP): Not available LMP-based estimated date of delivery (ROXANNE): 01/15/2025 First dating scan (date and location): 06/12/2024 Estimated date of delivery (ROXANNE) from first dating scan: 01/15/2025 The calculations are made using the working ROXANNE of 01/15/2025 TECHNIQUE: Real-time scanning was performed of the fetus, with image documentation and biometric measurements. Endovaginal scanning: Performed for better visualization of the cervix. COMPARISON: [facility], OB LIMITED, 11/03/2024, 11:05. FINDINGS: General: A single living intrauterine gestation is present. Presentation: Breech Placenta: Placental position is anterior, without previa Amniotic fluid index: 17.3 cm, normal range is 5-24 cm. Single deepest vertical pocket is 6.2 cm. heart rate: 140 beats per minute. Maternal cervical canal: 0.8 cm long. Normal lower limit is 2.5 cm. There is partial V-shaped funneling of the internal cervical os. biometrics: Biparietal diameter: 8.1 cm, 32 weeks 4 days Head circumference: 29.6 cm, 32 weeks 5 days Abdominal circumference: 26.9 cm, 31 weeks 0 days Femur length: 5.8 cm, 30 weeks 3 days Clinically estimated gestational age: 30 weeks 1 day Composite gestational age from present scan: 31 weeks 5 days Estimated weight and percentile: 1707 g, 73rd percentile IMPRESSION: 1. Single live intrauterine at 30 weeks 1 day gestational age with breech positioning. Single nuchal cord. 2. Shortened cervical canal measuring 0.8 cm with V-shaped funneling of the internal cervical os. 3. Overall growth is within normal limits with estimated weight at the 73rd percentile for gestational age. However, biparietal diameter is at the 96th percentile for gestational age. Concordant preliminary findings were conveyed to Dr. Loja by the domestic travel consultant at the conclusion of the exam. Approved by: Jose Armando Arreola M.D. on 11/07/2024 at 22:36
[2024-11-07 20:59] LABS: Appearance Urine UA CLEAR; Bacteria Urine Few (2-10); Bilirubin Urine UA NEGATIVE (NEGATIVE); Color Urine UA YELLOW; Culture Indicated Urine Cult Not Indicated; Glucose Urine UA NEGATIVE (Negative); Ketones Urine UA 1+ (NEGATIVE); Leukocyte Esterase Urine UA NEGATIVE (NEGATIVE); Mucus Urine 3+ (Negative); Nitrite Urine UA NEGATIVE (Negative); Occult Blood Urine UA NEGATIVE (Negative); Protein Urine UA NEGATIVE (Negative); RBC Urine 0-1/HPF (0-5/HPF); Specific Gravity Urine UA >=1.030 (1.000-1.035); Squamous Epithelial Cell Urine 1-5 /HPF (0-5/HPF); Urine Volume 10mL (spun); Urobilinogen Urine UA 0.2 E.U./dL (0.2); WBC Urine 1-5/HPF (0-5/HPF)
--- NOTE | 2024-11-07 21:41 | P.HPOB_ITS ---
OB HPI Date/Time Date of admission: 11/07/24 Date Patient Seen: 11/07/24 Time Patient Seen: 21:30 History of Present Condition Chief complaint: 30 weeks, px and discomfort ROXANNE Calculator Estimated Delivery Date Method Current WG Current Estimate 01/15/25 LMP (Certain) 30w 1d Other Estimates 01/15/25 Ultrasound #1 30w 1d : 3 Para: 1 Narrative: This is a 34 yo at 30w1d presenting with pelvic pressure and left sided lower abdominal discomfort. Discomfort has been present for past few days but became more painful this evening. Pain 2/10. Patient came in for evaluation in setting of known short cervix. No LOF, vaginal bleeding or dysuria. She has been on modified bed rest. care: good care Dating criteria OB: LMP confirmed by 1st trimester US Ultrasounds: abnormal US findings Abnormal ultrasound findings: Short Cervix at 25w6d - 1.6cm (10/07); repeat 10/22 cervix 1.3cm; repeat 11/03 cervix 1.7cm Medical complications OB: other (hx of gastric bypass) Indications Indication for induction OB: other (short cervix) Preadmission Labs Last OB Lab Results: Blood Type A Positive 06/26/24 13:23 Antibody Screen Negative 06/26/24 13:23 Hct 27.0 % (36-46) L 10/30/24 14:54 Hgb 9.4 g/dL (12.0-16.0) L 10/30/24 14:54 Hep Bs Antigen Negative s/c (NEGATIVE) 06/26/24 13:23 Hepatitis C Antibody Negative s/c (NEGATIVE) 06/26/24 13:23 Rubella Antibody 17.9 IU/mL (>15) 06/26/24 13:23 VZV IgG Antibody Reactive (Non Reactive) 06/26/24 13:23 Genetic Screens: Cell-free DNA: Normal and Alpha-fetoprotein: Normal Prior (ies) Past Pregnancies Del. Date GA/Weeks Labor Lgth Wt Sex Route Outcome Anesthesia Place Delv Breastfeed Preg Comp Name 04/21/14 39+ 8 8 lb 15 oz Female vaginal live - full te rm epidural [place] out of hospital attempted; poor supply macrosomia Milagro 12/29/22 11 spontaneous Delivery Date: 12/29/22 Last Updated by: Giovana Jose, RN retained products, needed D&C Evaluation Evaluation Baseline heart rate: 135 Variability: Average (6-10) monitor accelerations: Present Monitor Decelerations: Absent Category of Tracing: Reactive PFSH Medical History (Updated 10/27/24 @ 13:46 by Kush Barillas MD) Wears glasses Ruptured spleen (~1999) Surgical History (Updated 07/08/24 @ 19:49 by Trista Valderrama) Anesthesia [place] teeth extracted History of tonsillectomy (~1999) History of cholecystectomy (~2014) History of gastric bypass (~2019) Family History (Updated 07/08/24 @ 19:59 by Trista Valderrama) Mother PMR (polymyalgia rheumatica) Obesity Father Diabetes mellitus Pancreatic cancer Sister Drug abuse and dependence Fibromyalgia Depression Anxiety Obesity Mental health problem Granddaughter Cancer Grandmother Hyperlipidemia Heart disease Grandmother No problems noted. Grandfather No problems noted. Grandfather Cancer Family/Other ADHD Obesity Social History marital status: number of children: 1 household members: spouse and children lives independently: Yes caregiver/support person: Yes housing: house pets and animals: Yes (dogs) education level: college occupational status: employed current occupational exposures/hazards: No special garo needs: No travel history: recent seatbelt use: always water heater temp set < 120 deg: Yes working smoke detector in home: Yes fire extinguisher in home: No carbon monox detector in home: Yes firearms in home: No do you feel safe at home: Yes second hand exposure: No alcohol intake: former substance use type: does not use during the past year weight has: remained stable well-balanced diet: daily or most days daily servings fruits/ve or more times/day caffeine: Yes (aware of ) Type(s) of exercise: none Meds Home Medications and Allergies Home Medications Medication Instructions Recorded Confirmed Type calcium carbonate 500 mg PO DAILY 06/04/24 10/09/24 History cholecalciferol (vitamin D3) 25 25 mcg PO DAILY 06/04/24 10/09/24 History mcg (1,000 unit) capsule mecobalamin (vitamin B12) 1,000 1,000 mcg PO DAILY 06/04/24 10/09/24 History mcg lozenges vitamin-ferrous sulfate tab PO 06/04/24 10/09/24 History 27 mg iron-folic acid 0.8 mg tablet blood sugar diagnostic #100 ea 09/04/24 10/09/24 Rx blood-glucose meter (Blood Glucose #1 ea 09/04/24 10/09/24 Rx Monitoring kit) lancets 30 gauge #100 ea 09/04/24 10/09/24 Rx Allergies Allergy/AdvReac Type Severity Reaction Status Date / Time amoxicillin Allergy Intermediate Hives Verified 10/30/24 14:09 [email or web address] Allergy Intermediate Hives Verified 10/30/24 14:09 Latex, Natural Rubber Allergy Mild ITCHING Verified 10/30/24 14:09 adhesive AdvReac Intermediate Rash Verified 10/30/24 14:09 OB Exam Vital signs Blood Pressure: 109/57 Pulse Rate: 75 Temperature: 36.4 F Objective Labs Labs: Laboratory Results - last 24 hr 11/07/24 11/07/24 11/07/24 20:30 20:30 20:30 Urine Color Yellow Urine Appearance Clear Urine pH 6.0 Ur Specific Dawson >=1.030 H Urine Protein Negative Urine Glucose (UA) Negative Urine Ketones 1+ H Urine Occult Blood Negative Urine Nitrate Negative Urine Bilirubin Negative Urine Urobilinogen 0.2 Ur Leukocyte Esterase Negative Urine RBC Cancelled 0-1/hpf Urine WBC Cancelled 1-5/hpf Ur Squamous Epith Cells Cancelled Ur Transition Epith Cell Ur Renal Epithelial Cell Calcium Oxalate Crystal Uric Acid Crystals Triple Phos Crystals Other Crystals Amorphous Sediment Urine Bacteria Hyaline Casts Granular Casts RBC Casts WBC Casts Other Casts Urine Mucus Urine Trichomonas Urine Yeast Urine Sperm Ur Culture Indicated? Micro UA Comment Vol Urine Centrifuged 11/07/24 11/07/24 11/07/24 20:30 20:30 20:30 Urine Color Urine Appearance Urine pH Ur Specific Dawson Urine Protein Urine Glucose (UA) Urine Ketones Urine Occult Blood Urine Nitrate Urine Bilirubin Urine Urobilinogen Ur Leukocyte Esterase Urine RBC Urine WBC Ur Squamous Epith Cells 1-5 /hpf Ur Transition Epith Cell Cancelled Ur Renal Epithelial Cell Cancelled Calcium Oxalate Crystal Cancelled Uric Acid Crystals Cancelled Triple Phos Crystals Cancelled Other Crystals Cancelled Amorphous Sediment Cancelled Urine Bacteria Cancelled Few (2-10) H Hyaline Casts Cancelled Granular Casts Cancelled RBC Casts Cancelled WBC Casts Cancelled Other Casts Cancelled Urine Mucus Cancelled 3+ H D Urine Trichomonas Cancelled Urine Yeast Cancelled Urine Sperm Cancelled Ur Culture Indicated? Cancelled Micro UA Comment Vol Urine Centrifuged 11/07/24 11/07/24 20:30 20:30 Urine Color Urine Appearance Urine pH Ur Specific Dawson Urine Protein Urine Glucose (UA) Urine Ketones Urine Occult Blood Urine Nitrate Urine Bilirubin Urine Urobilinogen Ur Leukocyte Esterase Urine RBC Urine WBC Ur Squamous Epith Cells Ur Transition Epith Cell Ur Renal Epithelial Cell Calcium Oxalate Crystal Uric Acid Crystals Triple Phos Crystals Other Crystals Amorphous Sediment Urine Bacteria Hyaline Casts Granular Casts RBC Casts WBC Casts Other Casts Urine Mucus Urine Trichomonas Urine Yeast Urine Sperm Ur Culture Indicated? Cult not indicated Micro UA Comment Cancelled Vol Urine Centrifuged Cancelled 10ml (spun) Assessment and Plan Assessment and Plan Assessment and Plan narrative: 34 yo at 30w1d here with increased pelvic pressure and left sided pain in setting of known short cervix. Shortened Cervix Dx 25w6d in OB-ED with pelvic pressure. Cervix 1.6 cm at dx (10/04). US 10/22: 1.3cm. US 11/03: 1.7cm. -Cervical length 0.8cm with funneling on US tonight; EFW 1707g 73% percentile; breech positioning -Previously received BMZ 10/16 and 10/17 -Discussed case with Dr. Ayden Mahmood at [facility]; accepts transfer for evaluation 30w1d by LMP c/w first tri US. Normal cFDNA. Normal AFP. Hx of Gastric Bypass Labs q-trimester. 1 wk fingerstick instead of 1 hr GTT pass. OWEN Receiving iron transfusions. Time-Based Coding :: 60 minutes spent with patient and on the chart (including review of chart, obtaining history, exam, reviewing outside data, placing orders, documenting exam and treatment plan, and counseling patient) on 11/07/2024.
[2024-11-07 22:23] VITALS: BP 109/57; PULSE 75; TEMP 2.4; TEMP 36.4
--- NOTE | 2024-11-07 22:24 | PM.OBDS.1 ---
Discharge Providers Provider Date of admission: 11/07/24 20:05 Discharge Date: 11/07/24 Primary care physician: Bess DODSON Provider Consults: 11/07/24 21:45 Consult to Anesthesiology Urgent Comment: Consulting Provider: Anesthesiologist Reason for consultation: Epidural Discharge provider: Myriam Delarosa MD Summary Hospital Course Diagnoses: Short cervix Hospital Course: This is a 34 yo at 30w1d presenting with pelvic pressure and left sided lower abdominal discomfort. Discomfort has been present for past few days but became more painful this evening. Pain 2/10. Patient came in for evaluation in setting of known short cervix. No LOF, vaginal bleeding or dysuria. She has been on modified bed rest. Cervical length tonight is decreased from 1.6cm on 11/03 to 0.8cm. Discussed case with ISABELL Samayoa, Dr. Ayden Mahmood who graciously accepts transfer for evaluation. complicated by OWEN, hx of gastric bypass. Time Spent with Patient Time attestation: Total time spent providing and/or coordinating discharge services: 40 minutes Time spent: Greater than 30 minutes Objective Labs Labs: Laboratory Results - last 24 hr 11/07/24 11/07/24 11/07/24 20:30 20:30 20:30 Urine Color Yellow Urine Appearance Clear Urine pH 6.0 Ur Specific [place] >=1.030 H Urine Protein Negative Urine Glucose (UA) Negative Urine Ketones 1+ H Urine Occult Blood Negative Urine Nitrate Negative Urine Bilirubin Negative Urine Urobilinogen 0.2 Ur Leukocyte Esterase Negative Urine RBC Cancelled 0-1/hpf Urine WBC Cancelled 1-5/hpf Ur Squamous Epith Cells Cancelled Ur Transition Epith Cell Ur Renal Epithelial Cell Calcium Oxalate Crystal Uric Acid Crystals Triple Phos Crystals Other Crystals Amorphous Sediment Urine Bacteria Hyaline Casts Granular Casts RBC Casts WBC Casts Other Casts Urine Mucus Urine Trichomonas Urine Yeast Urine Sperm Ur Culture Indicated? Micro UA Comment Vol Urine Centrifuged 11/07/24 11/07/24 11/07/24 20:30 20:30 20:30 Urine Color Urine Appearance Urine pH Ur Specific [place] Urine Protein Urine Glucose (UA) Urine Ketones Urine Occult Blood Urine Nitrate Urine Bilirubin Urine Urobilinogen Ur Leukocyte Esterase Urine RBC Urine WBC Ur Squamous Epith Cells 1-5 /hpf Ur Transition Epith Cell Cancelled Ur Renal Epithelial Cell Cancelled Calcium Oxalate Crystal Cancelled Uric Acid Crystals Cancelled Triple Phos Crystals Cancelled Other Crystals Cancelled Amorphous Sediment Cancelled Urine Bacteria Cancelled Few (2-10) H Hyaline Casts Cancelled Granular Casts Cancelled RBC Casts Cancelled WBC Casts Cancelled Other Casts Cancelled Urine Mucus Cancelled 3+ H D Urine Trichomonas Cancelled Urine Yeast Cancelled Urine Sperm Cancelled Ur Culture Indicated? Cancelled Micro UA Comment Vol Urine Centrifuged 11/07/24 11/07/24 20:30 20:30 Urine Color Urine Appearance Urine pH Ur Specific [place] Urine Protein Urine Glucose (UA) Urine Ketones Urine Occult Blood Urine Nitrate Urine Bilirubin Urine Urobilinogen Ur Leukocyte Esterase Urine RBC Urine WBC Ur Squamous Epith Cells Ur Transition Epith Cell Ur Renal Epithelial Cell Calcium Oxalate Crystal Uric Acid Crystals Triple Phos Crystals Other Crystals Amorphous Sediment Urine Bacteria Hyaline Casts Granular Casts RBC Casts WBC Casts Other Casts Urine Mucus Urine Trichomonas Urine Yeast Urine Sperm Ur Culture Indicated? Cult not indicated Micro UA Comment Cancelled Vol Urine Centrifuged Cancelled 10ml (spun) Exam Vital Signs (past 8 hours): - 11/07/24 22:23 Temperature 36.4 F L Pulse Rate 75 Blood Pressure 109/57 L Narrative Exam Narrative: NAD, breathing easily Discharge Plan Discharge Plan Patient Disposition: Home Discharge orders & Medications Prescriptions: Continued (DME) blood-glucose meter [Blood Glucose Monitoring] Kit See Rx Instructions .Route Qty: 1 0RF Rx Instructions: As directed (DME) blood sugar diagnostic Strip See Rx Instructions .Route Qty: 100 2RF Rx Instructions: As directed, test glucose level 1 to 2 times a day (DME) lancets 30 gauge misc See Rx Instructions .Route Qty: 100 2RF Rx Instructions: As directed, to test glucose 1 to 2 times a day vit-ferrous sulfat-FA 27 mg iron- 0.8 mg tablet PO cholecalciferol (vitamin D3) 25 mcg (1,000 unit) capsule 25 mcg PO DAILY calcium carbonate 500 mg calcium (1,250 mg) tablet 500 mg PO DAILY mecobalamin (vitamin B12) 1,000 mcg lozenge 1,000 mcg PO DAILY Rx Instructions: allow to dissolve in mouth OR may chew lightly before swallowing Follow up/Referrals: ProviderBess [Primary Care Provider] - Visit Report/Discharge Packet Stand Alone Forms: Patient Portal/API, Stroke Signs & Symptoms Discharge Data Primary Care Provider: Provider,Bess DODSON
[2024-11-07 23:02] VITALS: BP 109/57; PULSE 90; RESP 16; TEMP 2.4; TEMP 36.4
[2024-11-07 23:42] LABS: Creatinine Urine Random 216.18 mg/dL
[2024-11-08 00:08] LABS: Protein (Total) Urine Random < 5 mg/dL (0-12); Protein Creatinine Ratio Urine 0.02 GRAM/24H
== END 2024-11-07 23:01 | disposition home or self-care (01) | DRG 392 ==
PROVIDERS: Admitting Provider Student in an Organized Health Care Education/Training Program; Referring Provider Student in an Organized Health Care Education/Training Program; Visit Provider Student in an Organized Health Care Education/Training Program
DX: O32.1XX0 Maternal care for breech presentation, not applicable or unspecified (principal); O99.843 Bariatric surgery status complicating pregnancy, third trimester; O26.873 Cervical shortening, third trimester; R10.32 Left lower quadrant pain; Z3A.30 30 weeks gestation of pregnancy; Z88.0 Allergy status to penicillin; Z91.040 Latex allergy status; Z88.1 Allergy status to other antibiotic agents
CPT/HCPCS: 59025; 59050; 76815; 76817; 80053; 81001; 85025; G0378; G0379

== ENCOUNTER → 2024-11-12 07:07 | Outpatient (CLI) | payer OTHER, SELFPAY ==
--- NOTE | 2024-11-12 07:08 | DI.US.S_ITS ---
PROCEDURE: US OB LIMITED INDICATIONS: weekly cervical length check OUTSIDE/PRIOR DATING DATA: Last menstrual period (LMP): 04/10/24. LMP-based estimated date of delivery (ROXANNE): 01/15/25. First dating scan (date and location): 06/12/24. Estimated date of delivery (ROXANNE) from first dating scan: 01/15/25. TECHNIQUE: Real-time scanning was performed of the fetus, with image documentation. Endovaginal scanning: Performed for accurate cervical length check. COMPARISON: [facility], OB LIMITED, 11/07/2024, 20:54. [facility], OB LIMITED, 11/03/2024, 11:05. FINDINGS: A single living intrauterine gestation is present. Presentation: Vertex. Placenta: Placental position is anterior, without previa. Amniotic fluid index: 21.0 cm, normal range is 5-24 cm. Single deepest vertical pocket is 7.1 cm. heart rate: 141 beats per minute. Maternal cervical canal: 1.6 cm long. Normal lower limit is 2.5 cm. No appreciable cervical funneling is currently seen. Estimated gestational age from initial scan: 30 weeks 6 days. IMPRESSION: Cervical length on prior study 5 days earlier had measured 8 mm with funneling. Current cervical length is 1.6 cm on transvaginal scanning, without funneling. Vertex presentation. Normal amniotic fluid volume. Dictated by: Martín Lea M.D. on 11/12/2024 at 9:09 Approved by: Martín Lea M.D. on 11/12/2024 at 9:13
== END ==
PROVIDERS: Referring Provider Family Medicine; Visit Provider Family Medicine
DX: O26.873 Cervical shortening, third trimester (principal); Z3A.30 30 weeks gestation of pregnancy
CPT/HCPCS: 76815; 76817

== ENCOUNTER → 2024-11-20 09:08 | Outpatient (CLI) | payer OTHER, SELFPAY ==
--- NOTE | 2024-11-20 09:09 | DI.US.S_ITS ---
PROCEDURE: US OB LIMITED INDICATIONS: CERVICAL SHORTENING OUTSIDE/PRIOR DATING DATA: The calculations are made using the ROXANNE of 01/15/2025. TECHNIQUE: Real-time scanning was performed of the fetus, with image documentation. Endovaginal scanning: Performed COMPARISON: [facility], OB LIMITED, 11/12/2024, 7:25. FINDINGS: A single living intrauterine gestation is present. Presentation: Breech. Placenta: Placental position is anterior, without previa. Amniotic fluid index: 17.7 cm, normal range is 5-24 cm. Single deepest vertical pocket is 7.4 cm. heart rate: 133 beats per minute. Maternal cervical canal: 1.9 cm long. Normal lower limit is 2.5 cm. No funneling. Estimated gestational age: 31 weeks, 6 days IMPRESSION: 1. Single live intrauterine consistent with 31 weeks and 6 days. 2. Maternal cervical length of 1.9 cm on transvaginal exam. Dictated by: Hadley Sosa M.D. on 11/21/2024 at 14:57 Approved by: Hadley Sosa M.D. on 11/21/2024 at 14:59
== END ==
PROVIDERS: Referring Provider Family Medicine; Visit Provider Family Medicine
DX: O26.873 Cervical shortening, third trimester (principal); Z3A.31 31 weeks gestation of pregnancy
CPT/HCPCS: 76815

== ENCOUNTER → 2024-11-24 11:01 | Outpatient (CLI) | payer OTHER, SELFPAY ==
--- NOTE | 2024-11-24 11:02 | DI.US.S_ITS ---
PROCEDURE: US OB LIMITED INDICATIONS: weekly cervical length check OUTSIDE/PRIOR DATING DATA: First dating scan (date and location): June 12, 2024. Estimated date of delivery (ROXANNE) from first dating scan: January 15, 2025. The calculations are made using the working ROXANNE of January 15, 2025. TECHNIQUE: Real-time scanning was performed of the fetus, with image documentation. Endovaginal scanning: Performed for measurement of the cervical length COMPARISON: [facility], OB LIMITED, 11/20/2024, 9:44. FINDINGS: A single living intrauterine gestation is present. Presentation: Vertex. Placenta: Placental position is anterior, without previa. Amniotic fluid index: 20.3 cm, normal range is 5-24 cm. Single deepest vertical pocket is 5.8 cm. heart rate: 168 beats per minute. Maternal cervical canal: By transvaginal measurement, cervical length measures approximately 0.8 cm long. Normal lower limit is 2.5 cm. There appears to be some mild funneling near the internal cervical os. Clinically estimated gestational age: 30 weeks and 6 days IMPRESSION: Cervical length measures approximately 0.8 cm by transvaginal measurement. Suggestion of mild funneling of the internal cervical os. Findings were relayed to the ordering physician by the customs and border protection inspector at time of study completion. Dictated by: John Trejo M.D. on 11/24/2024 at 14:49 Approved by: John Trejo M.D. on 11/24/2024 at 14:55
== END ==
PROVIDERS: Referring Provider Family Medicine; Visit Provider Family Medicine
DX: O26.873 Cervical shortening, third trimester (principal); Z3A.30 30 weeks gestation of pregnancy
CPT/HCPCS: 76815; 76817

== ENCOUNTER → 2024-12-02 12:16 | Outpatient (CLI) | payer OTHER, SELFPAY ==
--- NOTE | 2024-12-02 12:17 | DI.US.S_ITS ---
PROCEDURE: US OB LIMITED INDICATIONS: Weekly cervical length check OUTSIDE/PRIOR DATING DATA: Working ROXANNE: 01/15/2025 TECHNIQUE: Real-time scanning was performed of the fetus, with image documentation. Endovaginal scanning: Performed COMPARISON: [facility], OB LIMITED, 11/24/2024, 11:09. FINDINGS: A single living intrauterine gestation is present. Presentation: Vertex. Placenta: Placental position is anterior, without previa. Marginal cord insertion 0.4 centimeters from the placenta edge. Amniotic fluid index: 13.5 cm, normal range is 5-24 cm. Single deepest vertical pocket is 5.9 cm. heart rate: 157 beats per minute. Maternal cervical canal: 1.3 cm long. Normal lower limit is 2.5 cm. Previously 1.6 centimeter. There is v-shaped funneling present. Clinically estimated gestational age: 27 weeks 6 days IMPRESSION: Single living intrauterine at 27 weeks 6 days, ROXANNE of 01/15/2025. Maternal cervical canal measures 1.3 centimeters, with the shaped funneling. This previously measured 1.6 centimeter. Accurate primary report sent to ordering provider by the technologist at the time of exam. Dictated by: Stephen Ricardo M.D. on 12/02/2024 at 16:03 Approved by: Stephen Ricardo M.D. on 12/02/2024 at 16:05
== END ==
PROVIDERS: Referring Provider Family Medicine; Visit Provider Family Medicine
DX: O26.872 Cervical shortening, second trimester (principal); Z3A.27 27 weeks gestation of pregnancy
CPT/HCPCS: 76815; 76830

== ENCOUNTER 2024-12-11 19:37 | Outpatient (CLI) | payer OTHER, SELFPAY ==
[2024-12-11 20:24] VITALS: BP 104/58; PULSE 73; RESP 19; TEMP 36.1
== END 2024-12-11 20:24 | disposition home or self-care (01) ==
LOC: LABOR 19:41 → OB 12-14 11:13
PROVIDERS: Referring Provider Obstetrics & Gynecology; Visit Provider Obstetrics & Gynecology
DX: O60.03 Preterm labor without delivery, third trimester (principal); O36.8130 Decreased fetal movements, third trimester, not applicable or unspecified; Z3A.35 35 weeks gestation of pregnancy
CPT/HCPCS: 59025; G0378; G0379

== ENCOUNTER → 2024-12-15 09:53 | Outpatient (CLI) | payer OTHER, SELFPAY ==
[2024-12-15 10:12] LABS: Add Manual Diff / Slide Review NO; Basophils Absolute Auto 0 /uL (0-100); Basophils Percent Auto 0.2 % (0-2); Eosinophils Absolute Auto 0 /uL (0-450); Eosinophils Percent Auto 0.5 % (2-4); Hematocrit 28.7 % (36-46); Hemoglobin 9.5 g/dL (12.0-16.0); Lymphocytes Absolute Auto 1200 /uL (1100-4500); Lymphocytes Percent Auto 20.7 % (25-40); Mean Corpuscular Hemoglobin 28.2 PG (26-34); Mean Corpuscular Volume 85.2 fL (80-100); Monocytes Absolute Auto 400 /uL (0-900); Neutrophils Absolute Auto 4300 /uL (1500-7000); Neutrophils Percent Auto 71.6 % (50-75); Platelet Count 158 X10^3/uL (150-400); Red Blood Cell Count 3.37 X10^6/uL (4.0-5.2); Red Cell Distribution Width 18.5 % (11.6-14.8)
[2024-12-15 10:44] LABS: HEMOLYSIS < 15 (0-50); Iron 42 ug/dL (37-170)
[2024-12-15 10:55] LABS: Percent Iron Saturation 10 % (15-50); Total Iron Binding Capacity 440 ug/dL (265-497); Transferrin 380 mg/dL (206-381)
[2024-12-15 11:04] LABS: Vitamin D 25 Hydroxy (D3) 34.7 ng/mL (30.0-100.0)
[2024-12-15 11:20] LABS: Ferritin 8 ng/mL (6-137)
== END ==
PROVIDERS: Referring Provider Family Medicine; Visit Provider Family Medicine
DX: O09.90 Supervision of high risk pregnancy, unspecified, unspecified trimester (principal); O99.012 Anemia complicating pregnancy, second trimester; Z98.84 Bariatric surgery status
CPT/HCPCS: 36415; 82306; 82728; 83540; 83550; 85025

== ENCOUNTER → 2024-12-18 14:49 | Outpatient (CLI) | payer OTHER, SELFPAY ==
[2024-12-19 10:50] LABS: Strep Grp B PCR NEG for Grp B Strep
== END ==
PROVIDERS: Referring Provider Family Medicine; Visit Provider Family Medicine
DX: Z34.93 Encounter for supervision of normal pregnancy, unspecified, third trimester (principal); Z3A.36 36 weeks gestation of pregnancy
CPT/HCPCS: 87653

== ENCOUNTER 2024-12-29 10:50 | Outpatient (CLI) | payer OTHER, SELFPAY | END 2024-12-29 11:31 | disposition home or self-care (01) | LOC: OB 12-30 10:48 | PROVIDERS: Referring Provider Family Medicine; Visit Provider Family Medicine | DX: O26.873 Cervical shortening, third trimester (principal); O43.893 Other placental disorders, third trimester; O26.893 Other specified pregnancy related conditions, third trimester; R10.2 Pelvic and perineal pain; M79.604 Pain in right leg; Z3A.37 37 weeks gestation of pregnancy | CPT/HCPCS: 59025; G0378; G0379 ==

== ENCOUNTER 2025-01-02 14:56 | Outpatient (CLI) | payer OTHER, SELFPAY | END 2025-01-02 15:50 | disposition home or self-care (01) | LOC: LABOR 15:14 → OB 01-05 10:12 | PROVIDERS: Referring Provider Family Medicine; Visit Provider Family Medicine | DX: O36.8130 Decreased fetal movements, third trimester, not applicable or unspecified (principal); Z3A.38 38 weeks gestation of pregnancy | CPT/HCPCS: 59025; G0378; G0379 ==

== ENCOUNTER 2025-01-12 08:41 | Inpatient (IN) | payer OTHER, SELFPAY ==
[2025-01-12 09:35] LABS: Add Manual Diff / Slide Review NO; Hematocrit 29.8 % (36-46); Hemoglobin 10.0 g/dL (12.0-16.0); Lymphocytes Absolute Auto 1600 /uL (1100-4500); Mean Corpuscular HGB Conc 33.6 % (30-36); Mean Corpuscular Hemoglobin 28.4 PG (26-34); Mean Corpuscular Volume 84.6 fL (80-100); Platelet Count 196 X10^3/uL (150-400)
[2025-01-12 09:43] VITALS: BP 106/63
[2025-01-12] MEDS: OXYTOCIN PREMIX 30 UNIT/500 ML PLAST..BAG IV (09:57)
[2025-01-12] MEDS: LACTATED RINGERS 1,000 ML 100 ML IV (09:57)
--- NOTE | 2025-01-12 12:43 | PM.OBHP.IH.1 ---
OB HPI Date/Time Date of admission: 01/12/25 Date Patient Seen: 01/12/25 Time Patient Seen: 12:30 History of Present Condition Chief complaint: INDUCTION ROXANNE Calculator Estimated Delivery Date Method Current WG Current Estimate 01/15/25 LMP (Certain) 39w 4d Other Estimates 01/15/25 Ultrasound #1 39w 4d Estimated Gestational Age (weeks): 39+4 : 3 Para: 1 Narrative: 35-year-old at [place] 39+4 weeks presenting for eIOL. Endorses normal movement. Denies vaginal bleeding or denies leakage of fluid. course notable for hx Parish-en-Y gastric bypass with persistent iron deficiency, soft BP with recurrent presyncopal episodes. care: good care Dating criteria OB: LMP confirmed by 1st trimester US Ultrasounds: normal 1st trimester US, normal mid trimester US and abnormal US findings (short cervix starting at 26 weeks) Indications Indication for induction OB: maternal discomfort Preadmission Labs Last OB Lab Results: Blood Type A Positive Today, 09:05 Antibody Screen Negative Today, 09:05 Hct, (36-46) 29.8 % L Today, 09:05 Hgb, (12.0-16.0) 10.0 g/dL L Today, 09:05 Hep Bs Antigen, (NEGATIVE) Negative s/c 06/26/24, 13:23 Hepatitis C Antibody, (NEGATIVE) Negative s/c 06/26/24, 13:23 Rubella Antibody, (>15) 17.9 IU/mL 06/26/24, 13:23 VZV IgG Antibody, (Non Reactive) Reactive 06/26/24, 13:23 Group B Strep (PCR) Neg for grp b strep 12/18/24, 14:49 Glucose Tolerance Testing: Fasting Genetic Screens: Quad screen: Normal and Alpha-fetoprotein: Normal Prior (ies) Past Pregnancies Del. Date GA/Weeks Labor Lgth Wt Sex Route Outcome Anesthesia Place Delv Breastfeed Preg Comp Name 04/21/14 39+ 8 8 lb 15 oz Female vaginal live - full term epidural [place] out of hospital attempted; poor supply macrosomia [place] 12/29/22 11 spontaneous Delivery Date: 12/29/22 Last Updated by: Giovana Garcia RN retained products, needed D&C Evaluation Evaluation Baseline heart rate: 130 Variability: Moderate (6-25) monitor accelerations: Present Monitor Decelerations: Absent Contraction Frequency (minutes): 2 Uterine Contraction Intensity: Moderate Category of Tracing: Reactive Status: Category l Dilation (cm): 6 Effacement (%): 80 station: -1 Position of cervix: mid Consistency: soft Comments: AROM with clear fluid [facility] Medical History (Updated 12/05/24 @ 11:58 by Kush Barillas MD) Wears glasses Ruptured spleen (~1999) Surgical History (Updated 07/08/24 @ 19:49 by Trista Valderrama) Anesthesia [place] teeth extracted History of tonsillectomy (~1999) History of cholecystectomy (~2014) History of gastric bypass (~2019) Family History (Updated 07/08/24 @ 19:59 by Trista Valderrama) Mother PMR (polymyalgia rheumatica) Obesity Father Diabetes mellitus Pancreatic cancer Sister Drug abuse and dependence Fibromyalgia Depression Anxiety Obesity Mental health problem Granddaughter Cancer Grandmother Hyperlipidemia Heart disease Grandmother No problems noted. Grandfather No problems noted. Grandfather Cancer Family/Other ADHD Obesity Social History marital status: number of children: 1 household members: spouse and children lives independently: Yes caregiver/support person: Yes housing: house pets and animals: Yes (dogs) education level: college occupational status: employed current occupational exposures/hazards: No special garo needs: No travel history: recent seatbelt use: always water heater temp set < 120 deg: Yes working smoke detector in home: Yes fire extinguisher in home: No carbon monox detector in home: Yes firearms in home: No do you feel safe at home: Yes Smoking Status: Never smoker second hand exposure: No alcohol intake: former substance use type: does not use during the past year weight has: remained stable well-balanced diet: daily or most days daily servings fruits/ve or more times/day caffeine: Yes (aware of ) Type(s) of exercise: none Meds Home Medications and Allergies Home Medications ?Medication ?Instructions ?Recorded ?Confirmed ?Type calcium carbonate 500 mg PO DAILY 06/04/24 01/11/25 History cholecalciferol (vitamin D3) 25 25 mcg PO DAILY 06/04/24 01/11/25 History mcg (1,000 unit) capsule mecobalamin (vitamin B12) 1,000 1,000 mcg PO DAILY 06/04/24 01/11/25 History mcg lozenges vitamin-ferrous sulfate 1 tab PO DAILY 06/04/24 01/11/25 History 27 mg iron-folic acid 0.8 mg tablet blood sugar diagnostic #100 ea 09/04/24 01/11/25 Rx blood-glucose meter (Blood Glucose #1 ea 09/04/24 01/11/25 Rx Monitoring kit) lancets 30 gauge #100 ea 09/04/24 01/11/25 Rx Breast Pump #1 ea 11/19/24 01/11/25 Rx Allergies Allergy/AdvReac Type Severity Reaction Status Date / Time amoxicillin Allergy Intermediate Hives Verified 01/11/25 08:57 cefdinir Allergy Intermediate Hives Verified 01/11/25 08:57 Latex, Natural Rubber Allergy Mild ITCHING Verified 01/11/25 08:57 adhesive AdvReac Intermediate Rash Verified 01/11/25 08:57 Review of Systems Review of Systems ROS: Yes All systems reviewed with the patient and are negative except as otherwise documented OB Exam Narrative Exam Narrative: General: Well-nourished, no distress HEENT: NC/AT, EOMI, moist mucous membranes CV: RRR, normal S1 S2, no m/g/r Resp: CTAB Abd: Gravid, soft, NTND, +BS Ext: Full ROM, no edema Skin: No rash or lesions Neuro: A&O x3, normal tone, no focal deficits Objective Labs 01/12/25 09:05 Labs: Laboratory Results - last 24 hr 01/12/25 09:05 WBC 7.4 RBC 3.53 L Hgb 10.0 L Hct 29.8 L MCV 84.6 MCH 28.4 MCHC 33.6 RDW 18.6 H Plt Count 196 Neut % (Auto) 69.9 Lymph % (Auto) 21.2 L [place] % (Auto) 7.8 Eos % (Auto) 0.6 L Baso % (Auto) 0.5 Neut # (Auto) 5200 Lymph # (Auto) 1600 [place] # (Auto) 600 Eos # (Auto) 0 Baso # (Auto) 0 Blood Type A Positive Antibody Screen Negative Assessment and Plan Assessment and Plan Assessment and Plan narrative: 35-year-old at [place] 39+4 weeks presenting for eIOL. course notable for hx Parish-en-Y gastric bypass with persistent iron deficiency, soft BP with recurrent presyncopal episodes.. -admit to L&D -pitocin per protocol, titrate to adequate ctx pattern -GBS negative, ppx not indicated -pain control prn if desired by patient -PPH risk: [address] -VTE risk low, SCDs with epidural -anticipate vaginal delivery Time-Based Coding :: 20 minutes spent with patient and on the chart (including review of chart, obtaining history, exam, reviewing outside data, placing orders, documenting exam and treatment plan, and counseling patient) on 01/12/2025.
[2025-01-12] MEDS: LIDOCAINE 1% 20 ML INJ (15:10)
--- NOTE | 2025-01-12 15:57 | PM.OBPRVD ---
Labor & Delivery Delivery date: 01/12/25 Delivery Time: 14:57 Induction method: per pitocin protocol Delivery augmentation: rupture of membranes Delivery monitor: external FHT Route of delivery: L&D Laceration Description: Periurethral - 1st Degree and Perineal - 2nd Degree Delivery repair: vicryl Estimated blood loss (mL): 450 Quantitative Blood Loss: 536 Anesthesia Type: Local Narrative: Patient fully dilated at 1437 and began pushing at 1440. Spontaneous vaginal delivery of a viable female in the ABIEL position occurred at 1457. The was suctioned and stimulated at the perineum, and gave appropriate cry with movement of all extremities. Delayed cord clamping was observed for > 60 seconds. The cord was clamped and cut, and the handed to mother for skin to skin. Cord blood and segment were obtained. The placenta was delivered without difficulty using gentle cord traction and found to be intact with a 3-vessel cord. After fundal massage the uterus was firm and bleeding stopped. The vagina and cervix were examined for lacerations. Bilateral first-degree periurethral and a second-degree perineal laceration were noted and repaired with 3-0 Vicryl suture in the usual fashion. Patient stable with rooming in, bonding skin to skin and attempting to breastfeed. [place] Baby 1: gender: Female Presentation: vertex Position: Right Occiput Transverse Placenta delivery description: Spontaneous Cord Vessel Description: 3 Vessels score (1 min): 9 score (5 min): 10 weight: 9 lb 1.646 oz Plan for aftercare: Routine care
[2025-01-12] MEDS: DERMOPLAST SPRAY 20% 60 ML 1 SPRAY TOP (16:28)
[2025-01-12] MEDS: ACETAMINOPHEN 325 MG TABLET 650 MG PO ×2 (16:28→22:29)
[2025-01-12] MEDS: KETOROLAC 30 MG/ML VIAL IV (22:30)
[2025-01-13] MEDS: ACETAMINOPHEN 325 MG TABLET 650 MG PO ×2 (04:36→10:13)
[2025-01-13] MEDS: KETOROLAC 30 MG/ML VIAL IV ×2 (04:37→10:14)
[2025-01-13 08:49] LABS: Hematocrit 28.0 % (36-46); Hemoglobin 9.3 g/dL (12.0-16.0)
[2025-01-13] MEDS: LANOLIN OINT 7 GM 1 APPLIC TOP (13:45)
[2025-01-13] MEDS: DERMOPLAST SPRAY 20% 60 ML 1 SPRAY TOP (13:45)
[2025-01-13] MEDS: MEASLES,MUMPS,RUBELLA VACC/PF 0.5 ML VIAL SUBCUT (14:54)
[2025-01-13] MEDS: DOCUSATE 100 MG CAPSULE PO (14:55)
--- NOTE | 2025-01-13 15:11 | P.DS_ITS ---
Discharge Providers Provider Date of admission: 01/12/25 08:41 Discharge Date: 01/13/25 Primary care physician: Bess DODSON Provider Consults: 01/12/25 09:19 Consult to Anesthesiology Urgent Comment: Consulting Provider: Chandni Ceja Reason for consultation: Epidural Has provider been notified: Yes 01/12/25 16:08 Consult to [employer] Routine Comment: Discharge provider: Kush Barillas MD Summary Hospital Course Date Patient Seen: 01/13/25 Time Patient Seen: 16:07 Hospital Course: Admitted for eIOL on 01/12/2025. Progressed adequately with AROM and pitocin augmentation to complete dilation over the course of 5 hours. She had an uncomplicated of a live female infant with a second degree perineal and bilateral first degree periurethral lacerations that were repaired. Her course was uncomplicated. At discharge patient is ambulating well, tolerating normal diet, breast-feeding without difficulty, and pain is adequately controlled. She reports bleeding is similar to normal menses. Peripartum Data Delivery Method: Natural Vaginal Laceration Description: Periurethral - 1st Degree and Perineal - 2nd Degree complications: none [place] 1: Gender: Female Disposition of : home Discharge Diagnosis (1) (spontaneous vaginal delivery): Status: Acute (2) Perineal laceration during delivery: Status: Acute (3) Laceration of periurethral tissue with delivery: Status: Acute (4) Mother currently breast-feeding: Status: Acute (5) Anemia affecting : Status: Acute (6) Acquired iron deficiency anemia due to decreased absorption: Status: Acute (7) History of Parish-en-Y gastric bypass: Status: Acute Status at Discharge Cognitive/behavioral status at discharge: oriented Functional status at discharge: independent ambulation Overall status at discharge: patient is progressing back to baseline Time Spent with Patient Time attestation: Total time spent providing and/or coordinating discharge services: 30 minutes Time spent: Less than 30 minutes Objective Labs 01/13/25 08:06 Labs: Laboratory Results - last 24 hr 01/13/25 08:06 Hgb 9.3 L Hct 28.0 L Exam Narrative Exam Narrative: General: Well-appearing, well-nourished, no distress HEENT: Moist mucous membranes, no pallor CV: Regular rate and rhythm, no murmur auscultated Resp: CTAB, comfortable work of breathing Abdomen: Soft, bowel sounds present, fundus firm below umbilicus with appropriate tenderness Extremities: No edema, no calf tenderness or evidence of DVT Discharge Plan Discharge Plan Patient Disposition: Home Discharge orders & Medications Prescriptions: New acetaminophen 325 mg Tablet 650 mg PO Q6H PRN (Reason: Pain, Mild (1-3)) Qty: 90 1RF Dermoplast (with menthol) 20-0.5 % Aerosol 1 spray topical Q1HR PRN (Reason: Pain, Moderate (4-6)) Qty: 85 1RF Purelan Cream 1 applic topical PRN PRN (Reason: Sore Nipples) Qty: 7 6RF polyethylene glycol 3350 17 gram/dose powder 17 g PO DAILY Qty: 510 2RF Continued (DME) blood-glucose meter [Blood Glucose Monitoring] Kit See Rx Instructions .Route Qty: 1 0RF Rx Instructions: As directed (DME) blood sugar diagnostic Strip See Rx Instructions .Route Qty: 100 2RF Rx Instructions: As directed, test glucose level 1 to 2 times a day (DME) lancets 30 gauge misc See Rx Instructions .Route Qty: 100 2RF Rx Instructions: As directed, to test glucose 1 to 2 times a day (DME) Breast Pump See Rx Instructions .Route .MEDSUPPLY Qty: 1 0RF Rx Instructions: Use breast pump as directed vit-ferrous sulfat-FA 27 mg iron- 0.8 mg tablet 1 tab PO DAILY cholecalciferol (vitamin D3) 25 mcg (1,000 unit) capsule 25 mcg PO DAILY calcium carbonate 500 mg calcium (1,250 mg) tablet 500 mg PO DAILY mecobalamin (vitamin B12) 1,000 mcg lozenge 1,000 mcg PO DAILY Rx Instructions: allow to dissolve in mouth OR may chew lightly before swallowing Follow up/Referrals: Kush Barillas MD [Physician, Family Practice] - 02/26/25 12:00 pm Referral Note: Please follow up with for your six week visit. ProviderBess [Primary Care Provider, Family Practice] Visit Report/Discharge Packet Instructions: DI for Hemorrhage, DI for Depression Stand Alone Forms: Discharge: Care, Patient Portal/API, Stroke Signs & Symptoms Discharge Data Primary Care Provider: Bess Eaton
[2025-01-13 16:55] VITALS: BP 107/86; PULSE 82; RESP 13; TEMP 36.8
== END 2025-01-13 16:55 | disposition home or self-care (01) | DRG 807 ==
PROVIDERS: Admitting Provider Family Medicine; Referring Provider Family Medicine; Visit Provider Family Medicine
DX: O99.02 Anemia complicating childbirth (principal); Z37.0 Single live birth; D50.8 Other iron deficiency anemias; Z3A.39 39 weeks gestation of pregnancy; O99.844 Bariatric surgery status complicating childbirth; O70.1 Second degree perineal laceration during delivery; O71.82 Other specified trauma to perineum and vulva
CPT/HCPCS: 36415; 59050; 59400; 85014; 85018; 85025; 86850; 86900; 86901; G0379; J1885; J2590

== ENCOUNTER 2025-01-20 15:03 | Emergency (ER) | payer OTHER, SELFPAY ==
[2025-01-20 15:08] VITALS: BP 102/59; PULSE 64; RESP 18; TEMP 36.9; O2SAT 98; BMI 30.5
--- NOTE | 2025-01-20 18:07 | ED.ALLEREA ---
HPI - Allergic Reaction General Chief complaint: Allergic Reaction Stated complaint: Allergic reaction x2hrs, took 25mg Benadryl Time Seen by Provider: 01/20/25 18:07 Source: patient Mode of arrival: Ambulatory History of Present Illness HPI narrative: Patient is a 35-year-old female with past medical history of gastric bypass, asthma, eczema, comes into the ED from home for evaluation of possible allergic reaction, states that she was taking a new vitamin today and thinks she may have had an allergic reaction, states that happened a proximally 4 hours after taking it, states that she felt tingling sensation and felt like she had hives on her face and extremities, did take 25 mg Benadryl at around 1:30 p.m., states that her symptoms have since resolved, however she contacted her primary care doctor and was advised to come into the ED for further evaluation treatment. She denies any headache visual disturbances chest pain shortness breath fever chills nausea vomiting abdominal pain or any other GI/ symptoms. Related Data Home Medications ?Medication ?Instructions ?Recorded ?Confirmed calcium carbonate 500 mg PO DAILY 06/04/24 01/11/25 cholecalciferol (vitamin D3) 25 25 mcg PO DAILY 06/04/24 01/11/25 mcg (1,000 unit) capsule mecobalamin (vitamin B12) 1,000 1,000 mcg PO DAILY 06/04/24 01/11/25 mcg lozenges vitamin-ferrous sulfate 1 tab PO DAILY 06/04/24 01/11/25 27 mg iron-folic acid 0.8 mg tablet Previous Rx's ?Medication ?Instructions ?Recorded blood sugar diagnostic #100 ea 09/04/24 blood-glucose meter (Blood Glucose #1 ea 09/04/24 Monitoring kit) lancets 30 gauge #100 ea 09/04/24 Breast Pump #1 ea 11/19/24 acetaminophen 325 mg tablet 650 mg (2 x 325 mg) PO Q6H PRN 01/13/25 Pain, Mild (1-3) #90 tabs benzocaine 20 %-menthol 0.5 % 1 spray topical Q1HR PRN Pain, 01/13/25 topical aerosol (Dermoplast (with Moderate (4-6) #85 grams menthol)) lanolin (Purelan topical cream) 1 applic topical PRN PRN Sore 01/13/25 Nipples #7 grams polyethylene glycol 3350 17 17 g PO DAILY #510 grams 01/13/25 gram/dose oral powder epinephrine 0.3 mg/0.3 mL 0.3 mg (0.3 mL) IM Q5-15M PRN 01/20/25 injection, auto-injector (EpiPen) anaphylaxis #2 ea Allergies Allergy/AdvReac Type Severity Reaction Status Date / Time amoxicillin Allergy Intermediate Hives Verified 01/11/25 08:57 cefdinir Allergy Intermediate Hives Verified 01/11/25 08:57 Latex, Natural Rubber Allergy Mild ITCHING Verified 01/11/25 08:57 adhesive AdvReac Intermediate Rash Verified 01/11/25 08:57 Review of Systems Review of Systems Narrative: General: Positive possible allergic reaction Denies fever, chills, weight loss HEENT: Denies headache, eye drainage, eye irritation, head trauma, sore throat, voice change Cardiovascular: Denies any chest pain, palpitations, tachycardia Respiratory: Denies any shortness of breath, cough, wheeze, stridor GI/: Denies any abdominal pain, nausea, vomiting, diarrhea, bright red blood per rectum, melanotic stools, urinary frequency, urinary retention, dysuria, hematuria MSK: Denies any joint pain, muscle pains, swelling Skin: Positive rash Denies any, lesions, discoloration Neuro: Denies any headache, lightheadedness, dizziness, fainting, weakness Psych: Denies SI/HI Patient History Medical History (Updated 01/20/25 @ 18:12 by Sohail Galaviz DO) Wears glasses Ruptured spleen (~1999) Surgical History (Updated 07/08/24 @ 19:49 by Trista Valderrama) Anesthesia [place] teeth extracted History of tonsillectomy (~1999) History of cholecystectomy (~2014) History of gastric bypass (~2019) Family History (Updated 07/08/24 @ 19:59 by Trista Valderrama) Mother PMR (polymyalgia rheumatica) Obesity Father Diabetes mellitus Pancreatic cancer Sister Drug abuse and dependence Fibromyalgia Depression Anxiety Obesity Mental health problem Granddaughter Cancer Grandmother Hyperlipidemia Heart disease Grandmother No problems noted. Grandfather No problems noted. Grandfather Cancer Family/Other ADHD Obesity Social History marital status: number of children: 1 household members: spouse and children lives independently: Yes caregiver/support person: Yes housing: house pets and animals: Yes (dogs) education level: college occupational status: employed current occupational exposures/hazards: No special garo needs: No travel history: recent seatbelt use: always water heater temp set < 120 deg: Yes working smoke detector in home: Yes fire extinguisher in home: No carbon monox detector in home: Yes firearms in home: No do you feel safe at home: Yes Smoking Status: Never smoker second hand exposure: No alcohol intake: former substance use type: does not use during the past year weight has: remained stable well-balanced diet: daily or most days daily servings fruits/ve or more times/day caffeine: Yes (aware of ) Type(s) of exercise: none Smoking Status: Never smoker Exam Narrative Exam Narrative: General: Cooperative, well-developed, not in acute distress HEENT: Normocephalic, atraumatic, PERRLA, normal sclera, eyelids normal Neck: Active full range of motion, atraumatic Chest: Normal to inspection, negative crepitus, no overlying erythema ecchymosis Respiratory: Normal respiratory effort, not in acute respiratory distress, clear to auscultation bilaterally negative cough, wheeze, tachypnea, rhonchi, rales Cardiology: Regular rate rhythm negative gallop, murmur, rubs GI/: No tenderness to palpation, soft, non rigid, normal to inspection, exam deferred MSK: Full active range of motion in all 4 extremities, atraumatic, no tenderness to palpation of any bony prominences Skin: No appreciable rashes lesions noted Neuro: Alert awake oriented x3, moves all 4 extremities spontaneously, cranial nerves intact, able to answer all questions appropriately follows commands appropriately Psych: Cooperative, negative suicidal or homicidal ideations Initial Vital Signs Initial Vital Signs: Vital Signs Temperature 98.4 F 01/20/25 15:08 Pulse Rate 64 01/20/25 15:08 Respiratory Rate 18 01/20/25 15:08 Blood Pressure 102/59 L 01/20/25 15:08 Pulse Oximetry 98 01/20/25 15:08 Oxygen Delivery Method Room Air 01/20/25 15:08 Course Vital Signs Vital signs: Vital Signs - 8 hr 01/20/25 15:08 Temperature 98.4 F Pulse Rate 64 Respiratory Rate 18 Blood Pressure 102/59 L Pulse Oximetry 98 Oxygen Delivery Method Room Air MDM - Allergic Reaction Differential Diagnosis Differential diagnosis: Likely anaphylaxis, allergic reaction, angioedema and adverse reaction to drug MDM Narrative Medical decision making narrative: 35-year-old female with a past medical history of asthma eczema gastric bypass presenting for possible allergic reaction, states that she took a vitamin for the 1st time today and 4 hours later felt possible tingling rash and hives to her face and extremities, states that she did take 25 mg Benadryl after that which was at around 1:30 p.m., states that the symptoms have since completely resolved. Time of evaluation patient is not complaining of any shortness of breath no difficulty breathing no tightness in the throat. Oropharynx is clear without any signs of obstruction uvula midline no voice changes no stridor no trismus. She has not meeting any signs of anaphylaxis. Patient was instructed to follow up with her primary care doctor and to continue use Benadryl as needed. Given length of time since possible allergic reaction I believe there is no indication for additional medications. Patient was given strict return precautions she verbalized understanding of this and agrees to being discharged home with outpatient follow up. Patient will be sent home with an EpiPen for precautions Discharge Plan Departure Patient Disposition: Home Clinical Impression: Allergic reaction Instructions: DI for Hives, Epinephrine Injection Activity Restrictions/Additional Instructions: Please follow up with the primary care doctor and in research & analytics manager Please read the discharge instructions sheet carefully and bring all papers to all doctor follow-up visits, as it may contain information that your doctor may want to see. Disease processes change and evolve, if your symptoms worsen or if you develop any new symptoms that are concerning to you please return for evaluation. Your evaluation today does not show any evidence of any life-threatening/serious illnesses requiring admission to the hospital or surgery. Please follow-up with your doctor for re-evaluation in approximately 1 day. Seek immediate medical attention for any worrisome symptoms. *If you do not have a primary care provider please contact the [facility] Resource line at [phone]. They will ask some questions about your medical history and help get you set up with a doctor in the community. Prescriptions: New epinephrine [EpiPen] 0.3 mg/0.3 mL auto-injector 0.3 mg IM Q5-15M PRN (Reason: anaphylaxis) Qty: 2 2RF Rx Instructions: do not exceed 3 doses per episode No Action (DME) blood-glucose meter [Blood Glucose Monitoring] Kit See Rx Instructions .Route Qty: 1 0RF Rx Instructions: As directed (DME) blood sugar diagnostic Strip See Rx Instructions .Route Qty: 100 2RF Rx Instructions: As directed, test glucose level 1 to 2 times a day (DME) lancets 30 gauge misc See Rx Instructions .Route Qty: 100 2RF Rx Instructions: As directed, to test glucose 1 to 2 times a day (DME) Breast Pump See Rx Instructions .Route .MEDSUPPLY Qty: 1 0RF Rx Instructions: Use breast pump as directed vit-ferrous sulfat-FA 27 mg iron- 0.8 mg tablet 1 tab PO DAILY cholecalciferol (vitamin D3) 25 mcg (1,000 unit) capsule 25 mcg PO DAILY calcium carbonate 500 mg calcium (1,250 mg) tablet 500 mg PO DAILY mecobalamin (vitamin B12) 1,000 mcg lozenge 1,000 mcg PO DAILY Rx Instructions: allow to dissolve in mouth OR may chew lightly before swallowing acetaminophen 325 mg Tablet 650 mg PO Q6H PRN (Reason: Pain, Mild (1-3)) Qty: 90 1RF Dermoplast (with menthol) 20-0.5 % Aerosol 1 spray topical Q1HR PRN (Reason: Pain, Moderate (4-6)) Qty: 85 1RF Purelan Cream 1 applic topical PRN PRN (Reason: Sore Nipples) Qty: 7 6RF polyethylene glycol 3350 17 gram/dose powder 17 g PO DAILY Qty: 510 2RF Referrals: ProviderBess [Primary Care Provider, Family Practice] Stand Alone Forms: Patient Portal/API
[2025-01-20 18:14] VITALS: BP 109/68; PULSE 77; RESP 16; O2SAT 98
== END 2025-01-20 18:23 | disposition home or self-care (01) ==
PROVIDERS: Emergency Provider Student in an Organized Health Care Education/Training Program
DX: T78.49XA Other allergy, initial encounter (principal)
CPT/HCPCS: 99281